=== PATIENT | female | born 1955 | race Caucasian/White ===

== ENCOUNTER → 2019-02-02 | Outpatient (CLI) | payer OTHER ==
[~2019-02-02] MED LIST: ABAT250V; ALEN70 PO; CIPR500 PO; DILT120 PO; DILT180ER PO; DILTIAZEM 24HR240 MG PO; Hydrocodone-Ap1 EA23 PO; LEVOCETIRIZINE D5 MG PO; LEVSOD75 PO; LIVALO4 MG PO; METR500 PO; MONT10T PO; Omeprazole20 M1; VALSARTAN-HCTZ1 EAC3 PO
== END ==
LOC: LAB EV 11:25 → LAB SHORT 11:25
DX: R31.21 Asymptomatic microscopic hematuria (principal)
CPT/HCPCS: 87086

== ENCOUNTER → 2022-05-16 | Outpatient (CLI) | payer OTHER ==
[~2022-05-16] MED LIST changes: +CEPH500 PO
== END | disposition home or self-care (01) ==
LOC: LAB 12:06 → LAB SHORT 12:06
DX: N39.0 Urinary tract infection, site not specified (principal)
CPT/HCPCS: 87077; 87086; 87186

== ENCOUNTER 2022-05-27 17:00 | Inpatient (IN) | payer OTHER ==
[~2022-05-27] VITALS: Ht 142.2 cm; Wt 70.3 kg
[2022-05-27 17:43] LABS: BASOPHILS ABSOLUTE AUTO 0.02 K/mm3 (0.00-0.23); BASOPHILS PERCENT AUTO 0 % (0-2); EOSINOPHILS ABSOLUTE AUTO 0.08 K/mm3 (0.00-0.68); EOSINOPHILS PERCENT AUTO 1 % (0-6); Hematocrit 28.7 % (33.0-51.0); Hemoglobin 9.3 g/dL (11.5-16.0); IMMATURE GRAN ABSOLUTE AUTO 0.25 K/mm3 (0.00-0.10); IMMATURE GRAN PERCENT AUTO 2 % (0-1); LYMPHOCYTES ABSOLUTE AUTO 1.36 K/mm3 (0.84-5.20); LYMPHOCYTES PERCENT AUTO 11 % (21-46); MONOCYTES ABSOLUTE AUTO 1.48 K/mm3 (0.16-1.47); MONOCYTES PERCENT AUTO 12 % (4-13); Mean Corpuscular HGB 24.7 pg (26.0-34.0); Mean Corpuscular HGB Conc 32.4 g/dL (31.5-36.5); Mean Corpuscular Volume 76 fL (80-100); Mean Platelet Volume 9.3 fL (9.1-12.4); NEUTROPHILS PERCENT AUTO 75 % (41-73); Platelet Count 598 K/mm3 (150-400); RDW Coefficient Variation 15.9 % (11.7-14.2); RDW Standard Deviation 43.3 fL (35.1-46.3); Red Blood Cell Count 3.76 M/mm3 (3.80-5.20); White Blood Cell Count 12.49 K/mm3 (4.00-11.30)
[2022-05-27 18:12] LABS: Albumin, Blood 1.6 g/dL (3.4-5.0); Albumin/Globulin Ratio 0.3 (0.8-1.8); Bilirubin, Total 0.2 mg/dL (0.1-1.0); Bun/Creatinine Ratio 23.8 (12.0-20.0); Calcium, Blood 8.7 mg/dL (8.5-10.1); Creatinine, Blood 0.5 mg/dL (0.40-1.00); Globulin, Blood 5.2 g/dL (2.2-4.0); Potassium, Blood 3.5 mmol/L (3.5-5.5); Total Protein, Blood 6.8 g/dL (6.4-8.2)
--- NOTE | 2022-05-28 05:00 | NUR ---
SHIFT SUMMARY PT DID NOT SLEEP HARDLY AT ALL. PT STATES THAT SHE DOES NOT LIKE TO BE ALONE. CALLS FREQUENTLY. STATES THAT SHE DOES NOT WANT TO BE IN THE HOSPITAL AND SAYS THAT SHE CANNOT STAY ANOTHER NIGHT AND SHE NEEDS TO GO HOME TODAY. PT IS CHILD LIKE. APPEARS DEVELOPMENTALLY DELAYED. WAS ABLE TO GET UP TO THE BSC WITH JUST ONE PERSON ASSIST BUT WAS VERY FEARFUL OF FALLING WHENEVER UP. URINE HAS STRONG FOUL ODOR. PT DID HAVE ONE SMALL MUCUSY BOWEL MOVEMENT. REPORTS MILD ABD PAIN TO LLQ. DENIES NEEDING ANY PAIN MEDICATION. VITAL SIGNS STABLE. BED ALARM ON THROUGHOUT THE NIGHT. WILL CONTINUE TO MONITOR.
--- NOTE | 2022-05-28 18:28 | NUR ---
PT IS A/OX3, PLEASANT AND COOPERATIVE. PT IS MILDLY DELAYED. PT SISTER IS AT THE BEDSIDE TO HELP PROVIDE CARE FOR THE PT. THE PT APPEARS TO BE BREATHING EASILY ON RA AT THIS TIME, THE PT IS UP WITH 1 PERSON ASSIST THE PT WAS UP THE THE CHAIR AND THE BSC TODAY SEVERAL TIMES. THE PT REPORTED HAVEING MILD LEFT SIDE ABD PAIN . PT DECLINED TYLENOL. CALL LIGHT IN REACH WILL CONTINUE TO MONITOR AND ASSESS FOR CHANGES
--- NOTE | 2022-05-29 04:49 | NUR ---
SHIFT SUMMARY PATIENT HAD NO ACUTE CHANGES. AXOX 3 AND MILDLY DELAYED. ONE ASSIST TO BSC. REPORTED RONA PAIN AND TYLENOL 325 MG GIVEN PER PATIENT REQUEST. TRAZADONE 25 MG GIVEN FOR INSOMNIA. DENIES CHEST PAIN, SOB, AND N/V. KOTLIK. VSS/AFEBRILE. PIV REMAINS INTACT. IV ABX INFUSED. SISTER PRESENT IN ROOM T/O SHIFT. TELE MONITOR NSR 93. CALL LIGHT IN REACH. BED IN LOWEST POSITION. WILL CONTINUE TO MONITOR UNTIL DAY SHIFT NURSE ASSUMES CARE.
[2022-05-29 14:13] LABS: BASOPHILS ABSOLUTE AUTO 0.04 K/mm3 (0.00-0.23); BASOPHILS PERCENT AUTO 0 % (0-2); EOSINOPHILS ABSOLUTE AUTO 0.01 K/mm3 (0.00-0.68); EOSINOPHILS PERCENT AUTO 0 % (0-6); Hematocrit 30.1 % (33.0-51.0); Hemoglobin 9.7 g/dL (11.5-16.0); IMMATURE GRAN ABSOLUTE AUTO 0.34 K/mm3 (0.00-0.10); IMMATURE GRAN PERCENT AUTO 2 % (0-1); LYMPHOCYTES ABSOLUTE AUTO 1.13 K/mm3 (0.84-5.20); LYMPHOCYTES PERCENT AUTO 6 % (21-46); MONOCYTES ABSOLUTE AUTO 1.42 K/mm3 (0.16-1.47); MONOCYTES PERCENT AUTO 8 % (4-13); Mean Corpuscular HGB 24.6 pg (26.0-34.0); Mean Corpuscular HGB Conc 32.2 g/dL (31.5-36.5); Mean Corpuscular Volume 76 fL (80-100); Mean Platelet Volume 9.1 fL (9.1-12.4); NEUTROPHILS ABSOLUTE AUTO 15.04 K/mm3 (1.96-9.15); NEUTROPHILS PERCENT AUTO 84 % (41-73); Platelet Count 631 K/mm3 (150-400); RDW Coefficient Variation 15.9 % (11.7-14.2); Red Blood Cell Count 3.94 M/mm3 (3.80-5.20); White Blood Cell Count 17.98 K/mm3 (4.00-11.30)
[2022-05-29 14:32] LABS: Bun/Creatinine Ratio 17.4 (12.0-20.0); Calcium, Blood 7.8 mg/dL (8.5-10.1); Creatinine, Blood 0.46 mg/dL (0.40-1.00); Potassium, Blood 3.1 mmol/L (3.5-5.5)
--- NOTE | 2022-05-29 18:36 | NUR ---
SHIFT SUMMARY A&O X 3. DEVELOPMENTALLY DELAYED. VSS. PT IS 1 TO 2 PERSON MIN ASSIST TO BSC AND CHAIR. PIV INTACT & PATENT. PLEASEANT & COOPERATIVE WITH ALL CARE. IS TOLERATING A FULL LIQ DIET WITH PLANS TO ADVANCE DIET TOMORROW IF CONTINUES TO TOLERATE. DENIES ANY PAIN OR NAUSEA THIS SHIFT. HER SISTER HAS BEEN IN & OUT VISITING TODAY.
--- NOTE | 2022-05-30 06:20 | NUR ---
EGG CANDLER SUMMARY ADMITTED FOR SEPSIS/UTI. PT IS FULL CODE. SHE IS CONTINUING TO RECEIVE IV ABX THERAPY. SHE IS A STAND-PIVOT TO THE BSC AND REFUSES TO LET HER SISTER HELP HER. PT HAS HX OF ALCOHOL SYNDROME AND IS SLIGHTLY DELAYED. ORIENTED X3. PLEASANT. SHE IS VERY FEARFUL AT TIMES. CONTINOUS SMALL PASTY BMS THROUGHOUT THE NIGHT. MEDICATED WITH TRAZODONE TO HELP PT SLEEP AND ONCE WITH TYLENOL FOR ARTHRITIS PAIN.
[2022-05-30 13:53] LABS: BASOPHILS ABSOLUTE AUTO 0.03 K/mm3 (0.00-0.23); BASOPHILS PERCENT AUTO 0 % (0-2); EOSINOPHILS ABSOLUTE AUTO 0.01 K/mm3 (0.00-0.68); EOSINOPHILS PERCENT AUTO 0 % (0-6); Hemoglobin 10.2 g/dL (11.5-16.0); IMMATURE GRAN ABSOLUTE AUTO 0.35 K/mm3 (0.00-0.10); IMMATURE GRAN PERCENT AUTO 2 % (0-1); LYMPHOCYTES ABSOLUTE AUTO 1.24 K/mm3 (0.84-5.20); LYMPHOCYTES PERCENT AUTO 8 % (21-46); MONOCYTES ABSOLUTE AUTO 1.22 K/mm3 (0.16-1.47); MONOCYTES PERCENT AUTO 7 % (4-13); Mean Corpuscular HGB 24.9 pg (26.0-34.0); Mean Corpuscular HGB Conc 32.9 g/dL (31.5-36.5); Mean Corpuscular Volume 76 fL (80-100); NEUTROPHILS ABSOLUTE AUTO 13.54 K/mm3 (1.96-9.15); NEUTROPHILS PERCENT AUTO 83 % (41-73); Platelet Count 682 K/mm3 (150-400); RDW Coefficient Variation 16.3 % (11.7-14.2); RDW Standard Deviation 43.2 fL (35.1-46.3); Red Blood Cell Count 4.09 M/mm3 (3.80-5.20); White Blood Cell Count 16.39 K/mm3 (4.00-11.30)
[2022-05-30 14:07] LABS: Bun/Creatinine Ratio 14.3 (12.0-20.0); Creatinine, Blood 0.56 mg/dL (0.40-1.00); Potassium, Blood 3.2 mmol/L (3.5-5.5)
[2022-05-30 16:17] LABS: Percent Saturation 34.7 % (15.0-50.0)
--- NOTE | 2022-05-30 18:24 | NUR ---
SHIFT SUMMARY A&O X 3. VSS. DEVELOPMENTALLY DELAYED. PLEASANT, COOPERATIVE, ASKS APPROPRIATE QUESTIONS. STAND TO PIVOT WITH STDBY ASSIST TO BSC AND CHAIR. HAD CT SCAN OF ABD/PELVIS WITH CONTRAST THIS AFTERNOON. AWAITING RESULTS. PT IS HOPING TO BE DC'D HOME. NEW 20G PIV STARTED IN L FA, ORIGINAL PIV STARTED LEAKING. DC'D WITH CATH TIP INTACT, NO REDNESS OR SWELLING NOTED AT SITE. SISTER HAS BEEN IN THE ROOM OFF AND ON THROUGHOUT SHIFT.
--- NOTE | 2022-05-31 03:58 | NUR ---
MARGIE SLEPT WELL LAST NIGHT, WAKING ONLY TO USE THE BSC WITH ASSIST OF THE [employer] SAL[employer] AND SERVICE SUPERVISOR. SISTER IS IN ROOM. SHE IS VERY PROTECTIVE OF HER. SPOKE WITH PATIENT AND SISTER ABOUT DISCOMFORT AND SHE STATED THAT THE ONLY TIME SHE IS ROUTINELY UNCOMFORTABLE, IS DURING RESTING TIMES THAT BOTH HER HIPS BEGIN TO HURT. PAIN SUBSIDES WITH APAP AND PRN POSITION CHANGES. MARGIE IS WAITING FOR RESULTS OF HER ECHO YESTERDAY TO DETERMINE WHETHER OR NOT SHE WILL BE DISCHARGED HOME TODAY
[2022-05-31 04:50] LABS: BASOPHILS ABSOLUTE AUTO 0.05 K/mm3 (0.00-0.23); BASOPHILS PERCENT AUTO 0 % (0-2); EOSINOPHILS ABSOLUTE AUTO 0.02 K/mm3 (0.00-0.68); EOSINOPHILS PERCENT AUTO 0 % (0-6); Hematocrit 35.7 % (33.0-51.0); Hemoglobin 11.2 g/dL (11.5-16.0); IMMATURE GRAN ABSOLUTE AUTO 0.51 K/mm3 (0.00-0.10); IMMATURE GRAN PERCENT AUTO 4 % (0-1); LYMPHOCYTES ABSOLUTE AUTO 1.83 K/mm3 (0.84-5.20); LYMPHOCYTES PERCENT AUTO 14 % (21-46); MONOCYTES ABSOLUTE AUTO 0.96 K/mm3 (0.16-1.47); MONOCYTES PERCENT AUTO 7 % (4-13); Mean Corpuscular HGB 24.3 pg (26.0-34.0); Mean Corpuscular HGB Conc 31.4 g/dL (31.5-36.5); Mean Corpuscular Volume 78 fL (80-100); Mean Platelet Volume 9.1 fL (9.1-12.4); NEUTROPHILS ABSOLUTE AUTO 9.75 K/mm3 (1.96-9.15); NEUTROPHILS PERCENT AUTO 74 % (41-73); Platelet Count 771 K/mm3 (150-400); RDW Standard Deviation 44.3 fL (35.1-46.3); White Blood Cell Count 13.12 K/mm3 (4.00-11.30)
[2022-05-31 05:50] LABS: Bun/Creatinine Ratio 17.5 (12.0-20.0); Calcium, Blood 8.6 mg/dL (8.5-10.1); Creatinine, Blood 0.57 mg/dL (0.40-1.00); Magnesium, Blood 2.1 mg/dL (1.6-2.4); Potassium, Blood 3.9 mmol/L (3.5-5.5)
[2022-05-31 12:50] LABS: International Normalized Ratio 1.19; Prothrombin Time Results 12.4 Sec (9.7-11.5)
--- NOTE | 2022-05-31 18:31 | NUR ---
SHIFT SUMMARY; PATIENT HAD PROCEDURE DURING CT WHERE FLUID REMOVED FROM ABCESS IN HER ABDOMEN. IT WAS SENT TO LAB FOR BACTERIAL CULTURE. SHE NOW HAS A JPEG ON HER LOWER RIGHT ABDOMEN. DRAINING LIGHT BROWN MILKY FLUID. PATIENT DENIES ANY PAIN AT THIS TIME. SHE IS ON A FULL LIQUID DIET AND USES CALL LIGHT OR SENDS HER SISTER TO THE DOOR TO ASK FOR ASSIST. SHE IS A SBA TO THE BEDSIDE COMMODE. HER NS IS AT TKO WHEN SHE HAS IV ANTIBIOTICS RUNNING AND IS SALINE LOCKED REST OF TIME. VITAL SIGNS REMAIN WNL. PATIENT IS AFEBRILE. SHE IS VERY PERSONABLE AND LIKES STAFF TO COME TO VISIT WITH HER. PER SISTER PATIENT LIVES ALONE BUT SHE LIVES WITHIN 2 MILES OF HER. WILL REMAIN AVAILABLE FOR THIS PATIENT FOR ANY WANTS OR NEEDS UNTIL HAND OFF TO NOC SHIFT RN
[2022-06-01 06:06] LABS: BASOPHILS ABSOLUTE AUTO 0.04 K/mm3 (0.00-0.23); BASOPHILS PERCENT AUTO 0 % (0-2); EOSINOPHILS ABSOLUTE AUTO 0.01 K/mm3 (0.00-0.68); EOSINOPHILS PERCENT AUTO 0 % (0-6); Hematocrit 30.6 % (33.0-51.0); Hemoglobin 9.7 g/dL (11.5-16.0); IMMATURE GRAN ABSOLUTE AUTO 0.46 K/mm3 (0.00-0.10); IMMATURE GRAN PERCENT AUTO 3 % (0-1); LYMPHOCYTES ABSOLUTE AUTO 1.71 K/mm3 (0.84-5.20); LYMPHOCYTES PERCENT AUTO 11 % (21-46); MONOCYTES ABSOLUTE AUTO 0.97 K/mm3 (0.16-1.47); MONOCYTES PERCENT AUTO 6 % (4-13); Mean Corpuscular HGB 24.6 pg (26.0-34.0); Mean Corpuscular HGB Conc 31.7 g/dL (31.5-36.5); Mean Corpuscular Volume 78 fL (80-100); Mean Platelet Volume 9.1 fL (9.1-12.4); NEUTROPHILS ABSOLUTE AUTO 12.06 K/mm3 (1.96-9.15); NEUTROPHILS PERCENT AUTO 79 % (41-73); Platelet Count 764 K/mm3 (150-400); RDW Standard Deviation 45.3 fL (35.1-46.3); Red Blood Cell Count 3.95 M/mm3 (3.80-5.20); White Blood Cell Count 15.25 K/mm3 (4.00-11.30)
[2022-06-01 06:25] LABS: Bun/Creatinine Ratio 15.9 (12.0-20.0); Calcium, Blood 8.3 mg/dL (8.5-10.1); Creatinine, Blood 0.63 mg/dL (0.40-1.00)
--- NOTE | 2022-06-01 17:45 | NUR ---
SHIFT SUMMARY; SCANT DRAINAGE FROM DRAIN IN LOWER RIGHT ABDOMEN. SHE IS MEDICATED X 1 FOR PAIN TODAY. SHE HAS MULTIPLE FRIENDS IN TO VISIT AND HAS PLEASANT AFFECT. SHE USES CALL LIGHT APPROPRIATELY. HER SISTER IS AT BEDSIDE. PATIENT VERBALIZES OFTEN SHE WANTS TO GO HOME. PATIENT IS A ONE PERSON ASSIST TO BEDSIDE COMMODE SHE IS AO X 4. VITAL SIGNS REMAIN IN NORMAL LIMITS. PATIENT IS AFEBRILE. PER SHE IS NOW ON A REGULAR DIET. WAITING FOR BACTERIAL CULTURES TO SEE IF ON CORRECT ANTIBIOTICS. WILL REMAIN AVAILABLE FOR THIS PATIENT FOR ANY WANTS OR NEEDS THAT COME UP PRIOR TO SHIFT CHANGE.
--- NOTE | 2022-06-02 17:52 | NUR ---
PATIENT HAD A GOOD SHIFT AND IS TOLERATING IV ABX. SHE COMPLAINS THAT SHE IS BORED. THE ABD DRAIN IS WORKING, BUT HAS LITTLE OUTPUT. THE SURGEON IS GOING TO STOP TODAY TO ASSESS AND MAKE SURE IT IS WORKING PROPERLY. PATIENT HAS NO PAIN. LUNGS HAD SCATTERED CRACKLES OCCASIONALY. NO SOB. SHE IS ABLE TO GET UP WITH ASSIST OF ONE TO BEDSIDE COMMODE. SHE HOPES TO HAVE AN EARLIER DISCHARGE THAN THURSDAY ORIGINALLY ANTICIPATED.
--- NOTE | 2022-06-03 05:22 | NUR ---
[facility] COORDINATOR SUMMARY ADMITTED FOR SEPSIS. PT IS A FULL CODE. DRAIN IN PLACE TO THE LLQ - SLIGHT AMOUNT OF DRIED BLOOD, OTHERWISE DRESSING IS C/D/I. TEMPLE PURULENT DRAINAGE INTO THE BAG. PT IS ALERT AND ORIENTED X2-3. 1P STAND AND PIVOT TO BSC. IV LOST TONIGHT AND THIS RN RECOMMENDED A POWERGLIDE DUE TO PT COMPLAINTS OF LAB DRAWS EVERY MORNING AND Q6 ANTIBIOTICS TO BE GIVEN. UNABLE TO OBTAIN POWERGLIDE THIS SHIFT SO WILL BE PLACED DURING DAY SHIFT - 0600 ANTIBIOTICS TO BE HELD UNTIL IV ACCESS OBTAINED. NO EVENTS ON TELE. SHE HAS HAD MULTIPLE SOFT BMS THIS SHIFT. MEDICATED X1 WITH TYLENOL FOR ARTHRITIC PAIN.
[2022-06-03 09:11] LABS: BASOPHILS ABSOLUTE AUTO 0.03 K/mm3 (0.00-0.23); BASOPHILS PERCENT AUTO 0 % (0-2); EOSINOPHILS ABSOLUTE AUTO 0.04 K/mm3 (0.00-0.68); EOSINOPHILS PERCENT AUTO 0 % (0-6); Hematocrit 28.4 % (33.0-51.0); Hemoglobin 9.2 g/dL (11.5-16.0); IMMATURE GRAN ABSOLUTE AUTO 0.61 K/mm3 (0.00-0.10); IMMATURE GRAN PERCENT AUTO 4 % (0-1); LYMPHOCYTES ABSOLUTE AUTO 1.32 K/mm3 (0.84-5.20); LYMPHOCYTES PERCENT AUTO 9 % (21-46); MONOCYTES ABSOLUTE AUTO 0.86 K/mm3 (0.16-1.47); MONOCYTES PERCENT AUTO 6 % (4-13); Mean Corpuscular HGB 24.8 pg (26.0-34.0); Mean Corpuscular HGB Conc 32.4 g/dL (31.5-36.5); Mean Corpuscular Volume 77 fL (80-100); Mean Platelet Volume 8.8 fL (9.1-12.4); NEUTROPHILS ABSOLUTE AUTO 11.24 K/mm3 (1.96-9.15); NEUTROPHILS PERCENT AUTO 80 % (41-73); Platelet Count 669 K/mm3 (150-400); RDW Coefficient Variation 16.9 % (11.7-14.2); RDW Standard Deviation 43.6 fL (35.1-46.3); Red Blood Cell Count 3.71 M/mm3 (3.80-5.20)
--- NOTE | 2022-06-03 09:49 | NUR ---
SHADE RODRIGUEZ PLACED THIS AM. 0600 ZOSYN GIVEN AT 0945. PHARMACY STATED TO HOLD THE NOON DOSE, SINCE THIS DOSE WAS SO LATE AND THEN GIVE THE 1800 DOSE AT 1700.
--- NOTE | 2022-06-03 12:35 | NUR ---
Pt. is sitting up in a chair and preparing to eat lunch. Pt. welcomes my visit. Establish rapport. Pt. verbalizes hope to be discharged home today, but is unsettled by uncertain medical prognosis. Listen empatheticly with a calming presence. Pt. verbalized a desire to have her decator operator visit, and verbalized that she would like me to reach out to him. This wedding designer texted her decator operator with the request. Pt. verbalized gratitude for the spiritual care visit.
[2022-06-03] MEDS ORDERED: ACET325 PO (14:09)
[2022-06-03] MEDS ORDERED: MELO7.5 PO (14:09)
[2022-06-03] MEDS ORDERED: CEFD300 PO (14:10)
[2022-06-03] MEDS ORDERED: VISBIOME 112.51 EACH PO (14:12)
[2022-06-03] MEDS ORDERED: METR500 PO (14:15)
[2022-06-03] MEDS ORDERED: TRAZ50 PO ×2 (14:16→14:18)
--- NOTE | 2022-06-03 17:02 | NUR ---
PATIENT WAS DISCHARGED AT 1700, TO HOME. SISTER IS TRANSPORTING. PATIENTS POWERGLIDE WAS REMOVED AND TELE DC. DRAIN IN PLACE AND EDUCATION WAS PROVIDED TO THE PATIENTS SISTER ON HOW TO EMPTY AND CARE FOR THE DRAIN. FOLLOW UP APTS, DISCHARGE INSTRUCTIONS AND PATIENT EDUCATION WAS REVIEWED WITH THE PATIENT BEFORE SHE WAS WHEELED OUT BY WC.
== END 2022-06-03 16:56 | disposition home health service (06) | DRG 872 ==
LOC: ER 17:00 → MEDS 23:15
PROVIDERS: Internal Medicine; Physician Assistant; Surgery; ADMIT Internal Medicine
DX: A41.51 Sepsis due to Escherichia coli [E. coli] (principal); K57.20 Diverticulitis of large intestine with perforation and abscess without bleeding; K21.9 Gastro-esophageal reflux disease without esophagitis; I10 Essential (primary) hypertension; E66.9 Obesity, unspecified; D50.9 Iron deficiency anemia, unspecified; Z68.34 Body mass index [BMI] 34.0-34.9, adult; E87.6 Hypokalemia; G80.9 Cerebral palsy, unspecified; N20.0 Calculus of kidney; K80.20 Calculus of gallbladder without cholecystitis without obstruction; G47.00 Insomnia, unspecified; E03.9 Hypothyroidism, unspecified; Z98.41 Cataract extraction status, right eye; Z88.2 Allergy status to sulfonamides; Z88.8 Allergy status to other drugs, medicaments and biological substances; Z98.42 Cataract extraction status, left eye; Z79.899 Other long term (current) drug therapy
CPT/HCPCS: 36415; 49405; 74176; 74177; 80048; 80053; 82607; 82728; 82746; 83540; 83550; 83605; 83735; 85025; 85610; 85730; 87040; 87070; 87075; 87077; 87186; 87205; 96365; 99285-25; A9270; J0696; J1650; J2543; J7030; J7040; Q9967

== ENCOUNTER → 2022-06-26 | Outpatient (CLI) | payer OTHER ==
[~2022-06-26] MED LIST changes: +ACET325 PO; +CEFD300 PO; +MELO7.5 PO; +TRAZ50 PO; +VISBIOME 112.51 EACH PO
[2022-06-27 15:13] LABS: Campylobacter Sp Not Detected (NOT DETECT); Plesiomonas Shigelloides Not Detected (NOT DETECT)
[2022-06-27 15:14] LABS: Adenovirus F 40/41 Not Detected (NOT DETECT); Astrovirus Not Detected (NOT DETECT); Cryptosporidium Not Detected (NOT DETECT); Cyclospora Cayetanensis Not Detected (NOT DETECT); E. Coli O157 Not Detected (NOT DETECT); Entamoeba Histolytica Not Detected (NOT DETECT); Enteroaggregative E. coli-EAEC Not Detected (NOT DETECT); Enteropathogenic E. coli-EPEC Not Detected (NOT DETECT); Enterotoxigenic E. coli-ETEC Not Detected (NOT DETECT); Giardia Lamblia Not Detected (NOT DETECT); Norovirus GI/GII Not Detected (NOT DETECT); Rotavirus A Not Detected (NOT DETECT); Salmonella Sp Not Detected (NOT DETECT); Sapovirus Not Detected (NOT DETECT); Shiga Toxin-prod E. coli-STEC Not Detected (NOT DETECT); Shigella/Enteroin E. coli-EIEC Not Detected (NOT DETECT); Vibrio Cholerae Not Detected (NOT DETECT); Vibrio Sp Not Detected (NOT DETECT); Yersinia Enterocolitica Not Detected (NOT DETECT)
== END | disposition home or self-care (01) ==
LOC: LAB 17:00 → LAB SHORT 17:00
PROVIDERS: Family Medicine
DX: R19.7 Diarrhea, unspecified (principal); R19.5 Other fecal abnormalities
CPT/HCPCS: 87507

== ENCOUNTER → 2022-06-27 | Outpatient (CLI) | payer OTHER ==
[2022-06-27 14:32] LABS: Appearance, Urine Cloudy (Clear); Bilirubin, Urine Neg (Neg); Blood, Urine 4+ (Neg); Color, Urine Amber (P-Yellow); Glucose Qualitative, Urine Neg (Neg); Ketones, Urine Neg (Neg); Leukocyte Esterase, Urine 3+ (Neg); Nitrite, Urine Neg (Neg); Protein, Urine 1+ (Neg); Specific Gravity, Urine 1.005 (1.003-1.022); Urobilinogen, Urine NORM (Normal)
[2022-06-27 15:15] LABS: Bacteria Many /hpf; Hyaline Casts 0-2 /lpf (0-2); Renal Epithelial Rare /hpf (0-Rare); Squamous Epithelial Cells Many /hpf (Few); Transitional Epithelial Cells Rare /hpf (0-Rare); WBC Cast 0-2 /lpf (0); White Blood Cells, Urine 50-100 /hpf (0-5)
== END | disposition home or self-care (01) ==
LOC: LAB HH 12:00
PROVIDERS: Family Medicine
DX: N39.0 Urinary tract infection, site not specified (principal)
CPT/HCPCS: 81001; 87077; 87086; 87186

== ENCOUNTER → 2022-07-14 | Outpatient (CLI) | payer OTHER | END | disposition home or self-care (01) | LOC: LAB SHORT 15:04 → LAB 15:04 | DX: N39.0 Urinary tract infection, site not specified (principal) | CPT/HCPCS: 87086 ==

== ENCOUNTER → 2022-08-01 | Outpatient (CLI) | payer OTHER ==
[~2022-08-01] MED LIST changes: +MELA3 PO
[2022-08-01 15:08] LABS: Source, Urine Clean Catch
[2022-08-01 15:10] LABS: Bacteria Mod /hpf; Squamous Epithelial Cells Few /hpf (Few); White Blood Cells, Urine TNTC /hpf (0-5)
== END ==
LOC: LAB SHORT 15:07
PROVIDERS: Physician Assistant
DX: N39.0 Urinary tract infection, site not specified (principal)
CPT/HCPCS: 81015; 87077; 87086; 87186

== ENCOUNTER → 2022-08-25 | Outpatient (CLI) | payer OTHER ==
[~2022-08-25] MED LIST changes: +CEFU500T30 PO
== END | disposition home or self-care (01) ==
LOC: LAB SHORT 15:39 → LAB 15:39
DX: N39.0 Urinary tract infection, site not specified (principal)
CPT/HCPCS: 87077; 87086; 87186

== ENCOUNTER 2022-08-30 13:58 | Emergency (ER) | payer OTHER ==
[~2022-08-30] VITALS: Ht 134.6 cm; Wt 68.0 kg
[~2022-08-30 13:58] MED LIST changes: -CEFU500T30 PO
[2022-08-30 16:45] LABS: BASOPHILS ABSOLUTE AUTO 0.02 K/mm3 (0.00-0.23); BASOPHILS PERCENT AUTO 0 % (0-2); EOSINOPHILS ABSOLUTE AUTO 0.12 K/mm3 (0.00-0.68); EOSINOPHILS PERCENT AUTO 1 % (0-6); Hematocrit 37.5 % (33.0-51.0); Hemoglobin 11.9 g/dL (11.5-16.0); IMMATURE GRAN ABSOLUTE AUTO 0.06 K/mm3 (0.00-0.10); IMMATURE GRAN PERCENT AUTO 1 % (0-1); LYMPHOCYTES PERCENT AUTO 12 % (21-46); MONOCYTES ABSOLUTE AUTO 0.83 K/mm3 (0.16-1.47); MONOCYTES PERCENT AUTO 8 % (4-13); Mean Corpuscular HGB 27.1 pg (26.0-34.0); Mean Corpuscular HGB Conc 31.7 g/dL (31.5-36.5); Mean Corpuscular Volume 85 fL (80-100); Mean Platelet Volume 10.3 fL (9.1-12.4); NEUTROPHILS PERCENT AUTO 78 % (41-73); Platelet Count 471 K/mm3 (150-400); RDW Standard Deviation 47.3 fL (35.1-46.3); Red Blood Cell Count 4.39 M/mm3 (3.80-5.20); White Blood Cell Count 10.63 K/mm3 (4.00-11.30)
[2022-08-30 16:50] LABS: Bun/Creatinine Ratio 22.1 (12.0-20.0); Calcium, Blood 8.9 mg/dL (8.5-10.1); Creatinine, Blood 0.45 mg/dL (0.40-1.00); Potassium, Blood 3.9 mmol/L (3.5-5.5)
[2022-08-30 17:26] LABS: Source, Urine Clean Catch
[2022-08-30 17:39] LABS: Appearance, Urine Turbid (Clear); Bilirubin, Urine Neg (Neg); Blood, Urine 5+ (Neg); Glucose Qualitative, Urine Neg (Neg); Ketones, Urine Neg (Neg); Leukocyte Esterase, Urine 3+ (Neg); Nitrite, Urine Neg (Neg); Protein, Urine 3+ (Neg); Urobilinogen, Urine NORM (Normal)
[2022-08-30 17:48] LABS: Color, Urine Pale Yellow (P-Yellow)
[2022-08-30 17:52] LABS: Bacteria Many /hpf; Red Blood Cells, Urine 25-50 /hpf (0-2); Squamous Epithelial Cells Few /hpf (Few); White Blood Cells, Urine TNTC /hpf (0-5)
[2022-08-30 17:53] LABS: Amorphous Light (0-Heavy); Calcium Oxalate Crystals Many /hpf; Mucus Light (0-Heavy); Transitional Epithelial Cells Few /hpf (0-Rare)
[2022-08-30] MEDS ORDERED: CEFU500T30 PO (18:09)
== END 2022-08-30 19:21 | disposition home or self-care (01) ==
LOC: ER 13:58
PROVIDERS: Student in an Organized Health Care Education/Training Program
DX: N39.0 Urinary tract infection, site not specified (principal); R31.9 Hematuria, unspecified; I10 Essential (primary) hypertension; E03.9 Hypothyroidism, unspecified; K92.1 Melena; Z88.2 Allergy status to sulfonamides; Z88.8 Allergy status to other drugs, medicaments and biological substances; Z79.890 Hormone replacement therapy; Z79.899 Other long term (current) drug therapy
CPT/HCPCS: 36415; 80048; 81001; 85025; 87077; 87086; 87186; A9270

== ENCOUNTER 2022-09-24 12:36 | Emergency (ER) | payer OTHER ==
[~2022-09-24] VITALS: Ht 134.6 cm; Wt 54.4 kg
[~2022-09-24 12:36] MED LIST changes: +CEFU500T30 PO
[2022-09-24 13:54] LABS: Adenovirus Not Detected (NOT DETECT); Bordetella pertussis Not Detected (NOT DETECT); Chlamydophila pneumoniae Not Detected (NOT DETECT); Coronavirus 229E Not Detected (NOT DETECT); Coronavirus HKU1 Not Detected (NOT DETECT); Coronavirus NL63 Not Detected (NOT DETECT); Coronavirus OC43 Not Detected (NOT DETECT); Human Metapneumovirus Not Detected (NOT DETECT); Human Rhinovirus/Enterovirus Not Detected (NOT DETECT); Influenza A/2009-H1 Not Detected (NOT DETECT); Influenza A/H1 Not Detected (NOT DETECT); Influenza A/H3 Not Detected (NOT DETECT); Influenza B Not Detected (NOT DETECT); Mycoplasma pneumoniae Not Detected (NOT DETECT); Parainfluenza Virus 1 Not Detected (NOT DETECT); Parainfluenza Virus 2 Not Detected (NOT DETECT); Parainfluenza Virus 3 Not Detected (NOT DETECT); Parainfluenza Virus 4 Not Detected (NOT DETECT); Respiratory Syncytial Virus Not Detected (NOT DETECT); SARS-Cov-2 (COVID-19), BioFire Not Detected (NOT DETECT)
[2022-09-24 14:42] LABS: Source, Urine Clean Catch
[2022-09-24 14:45] LABS: Appearance, Urine Turbid (Clear); Blood, Urine 5+ (Neg); Color, Urine Amber (P-Yellow); Glucose Qualitative, Urine Neg (Neg); Ketones, Urine 1+ (Neg); Leukocyte Esterase, Urine 3+ (Neg); Nitrite, Urine Pos (Neg); Protein, Urine 3+ (Neg); Specific Gravity, Urine 1.025 (1.003-1.022); Urobilinogen, Urine 1+ (Normal)
[2022-09-24 14:53] LABS: Bilirubin, Urine 1+ (Neg)
[2022-09-24 14:55] LABS: Bacteria Many /hpf; Hyaline Casts 0-2 /lpf (0-2); Red Blood Cells, Urine TNTC /hpf (0-2); Squamous Epithelial Cells Few /hpf (Few); Transitional Epithelial Cells Rare /hpf (0-Rare); White Blood Cells, Urine TNTC /hpf (0-5)
[2022-09-24] MEDS ORDERED: CEFP200 PO (15:10)
== END 2022-09-24 15:40 | disposition home or self-care (01) ==
LOC: ER 12:36
PROVIDERS: Emergency Medicine; Physician Assistant
DX: N39.0 Urinary tract infection, site not specified (principal); R11.2 Nausea with vomiting, unspecified; R19.7 Diarrhea, unspecified; I10 Essential (primary) hypertension; E03.9 Hypothyroidism, unspecified; Z88.8 Allergy status to other drugs, medicaments and biological substances; Z88.2 Allergy status to sulfonamides; Z88.1 Allergy status to other antibiotic agents; Z91.018 Allergy to other foods; Z79.899 Other long term (current) drug therapy; Z20.822 Contact with and (suspected) exposure to COVID-19
CPT/HCPCS: 0202U; 81001

== ENCOUNTER 2022-10-09 06:04 | Inpatient (IN) | payer OTHER ==
[~2022-10-09] VITALS: Ht 142.2 cm; Wt 54.9 kg
[~2022-10-09 06:04] MED LIST changes: +CEFP200 PO
[2022-10-09] MEDS ORDERED: METR500 (06:41)
[2022-10-09] MEDS ORDERED: GABAPENTIN600 MG PO (06:42)
[2022-10-09] MEDS ORDERED: TRAZ50 PO (06:43)
[2022-10-09] MEDS ORDERED: LEVOCETIRIZINE D5 MG PO (06:44)
--- NOTE | 2022-10-09 08:22 | NUR ---
LATE NOTE: Ambulatory in Day Surgery. Surgical site prepped with 2% Chlorhexidine cloth wipe. History, Chart, Medications and Allergies reviewed before start of procedure. Patient reports completing Chlorhexadine shower X2 prior to admission to hospital.Patient confirms NPO status and agrees with scheduled surgery.Pt was insecure about surgery, consoled and explained the need. Sister and Caregiver at bedside. Dr. Iglesias at bedside and opened fluids to gravity due to pt being nauseated.
--- NOTE | 2022-10-09 14:30 | NUR ---
10/09/22 1430 Gloria Martinez XRAY TAKEN AT END OF CASE. PER NO RETAINED ITEMS.
[2022-10-09] MEDS ORDERED: PRAVASTATIN SOD40 MG PO (15:13)
--- NOTE | 2022-10-09 19:41 | NUR ---
SHIFT SUMMARY POD0 SIGMOID COLECTOMY c VERONICA, PT CONFUSED POST OP AND SISTER AT BEDSIDE REPORTING THIS NOT TO BE HER BASELINE, DISCUSSED SITUATION WITH PT AND SISTER THAT THIS IS MOST LIKELY R/T ANESTHESIA. FAMILY STAYED AT BEDSIDE T/O THE SHIFT ASSISTING WITH PATIENT NEEDS. NO OTHER EVENTS THIS SHIFT, CALL LIGHT IN REACH, REPORT GIVEN TO NOC RN.
--- NOTE | 2022-10-10 06:36 | NUR ---
SHIFT SUMMARY: PODx1 NOW FROM SIG. COLECTOMY WITH LYSIS OF ADHESIONS. PAIN WELL MANAGED T/O THE SHIFT WITH EMAR ORDERS. PT RESTED THE MAJORITY OF THE NIGHT. DWAIN REMAINS IN PLACE WITH X4 LAP SITES COVERED WITH BANDAIDS. PT TOLERATING PO FLUIDS WELL AT THIS TIME. JOSEPH REMAINS IN PLACE. PATENT AND DRAINING TO GRAVITY. PT ENCOURAGED TO REST. CALL LIGHT REMAINS IN PLACE.
[2022-10-10 08:02] LABS: BASOPHILS ABSOLUTE AUTO 0.01 K/mm3 (0.00-0.23); BASOPHILS PERCENT AUTO 0 % (0-2); EOSINOPHILS PERCENT AUTO 0 % (0-6); Hematocrit 23.9 % (33.0-51.0); Hemoglobin 7.8 g/dL (11.5-16.0); IMMATURE GRAN ABSOLUTE AUTO 0.08 K/mm3 (0.00-0.10); IMMATURE GRAN PERCENT AUTO 1 % (0-1); LYMPHOCYTES ABSOLUTE AUTO 1.57 K/mm3 (0.84-5.20); LYMPHOCYTES PERCENT AUTO 10 % (21-46); MONOCYTES ABSOLUTE AUTO 1.98 K/mm3 (0.16-1.47); MONOCYTES PERCENT AUTO 12 % (4-13); Mean Corpuscular HGB 26.3 pg (26.0-34.0); Mean Corpuscular HGB Conc 32.6 g/dL (31.5-36.5); Mean Corpuscular Volume 81 fL (80-100); Mean Platelet Volume 10.3 fL (9.1-12.4); NEUTROPHILS PERCENT AUTO 78 % (41-73); NRBC ABSOLUTE 0.02 K/mm3 (0.00-0.02); NRBC Auto 0.1 /100 WBC (0.0-0.2); Platelet Count 424 K/mm3 (150-400); RDW Coefficient Variation 16.8 % (11.7-14.2); RDW Standard Deviation 46.5 fL (35.1-46.3); Red Blood Cell Count 2.97 M/mm3 (3.80-5.20); White Blood Cell Count 16.34 K/mm3 (4.00-11.30)
[2022-10-10 08:28] LABS: Bun/Creatinine Ratio 20.4 (12.0-20.0); Calcium, Blood 7.7 mg/dL (8.5-10.1); Creatinine, Blood 1.13 mg/dL (0.40-1.00); Magnesium, Blood 1.8 mg/dL (1.6-2.4); Potassium, Blood 3.9 mmol/L (3.5-5.5)
--- NOTE | 2022-10-10 17:27 | NUR ---
SUMMARY: PT IS POD1 SIG COLECTOMY. A/O, VSS. SURGICAL SITE WNL, DWAIN DI. DIET ADVANCED TO REG TODAY AND PT DID WELL. NO N/V. PAIN SEEMS TO BE WELL MANAGED WITH 1-2 OXY. JOSEPH TO REMAIN IN UNTIL SURGERY ORDERS TO DC. PT DID WELL GETTING UP TO CHAIR WITH THERAPY. FLUIDS INFUSING. PT USING CALL LIGHT, NO ACUTE CONCERNS
--- NOTE | 2022-10-11 02:07 | NUR ---
IV ATTEMPT: ATTEMPTED TO PLACE IV WITH CHARGE NURSE. UNSUCCESSFUL, EVEN AFTER USING ULTRASOUND. PT LEFT IV WAS INFILTRATED. REMOVED AND LIMB ELEVATED. ENCOURAGED PT TO DRINK FLUIDS AT THIS TIME. WILL RELAY TO DAY SHIFT RN.
--- NOTE | 2022-10-11 04:30 | NUR ---
0430 PT C/O PAIN WITH COUGHING. PT ENCOURAGED TO DEEP BREATHE, USE IS, AND SPLINT CHEST WHEN COUGHING. PT WAS MEDICATED FOR PAIN PER EMAR ORDERS. TYLENOL AND OXYCODONE GIVEN. DWAIN IN PLACE WITH NO NEW EXUDATE NOTED. PT IS WEAK AND TIRED. LUNG SOUNDS STILL SOUNDING CLEAR IN UPPER QUADRANTS.
[2022-10-11 05:09] LABS: BASOPHILS ABSOLUTE AUTO 0.02 K/mm3 (0.00-0.23); BASOPHILS PERCENT AUTO 0 % (0-2); EOSINOPHILS PERCENT AUTO 0 % (0-6); Hematocrit 20.4 % (33.0-51.0); Hemoglobin 6.8 g/dL (11.5-16.0); IMMATURE GRAN ABSOLUTE AUTO 0.18 K/mm3 (0.00-0.10); IMMATURE GRAN PERCENT AUTO 1 % (0-1); LYMPHOCYTES ABSOLUTE AUTO 1.26 K/mm3 (0.84-5.20); LYMPHOCYTES PERCENT AUTO 6 % (21-46); MONOCYTES ABSOLUTE AUTO 2.47 K/mm3 (0.16-1.47); MONOCYTES PERCENT AUTO 12 % (4-13); Mean Corpuscular HGB 26.5 pg (26.0-34.0); Mean Corpuscular HGB Conc 33.3 g/dL (31.5-36.5); Mean Corpuscular Volume 79 fL (80-100); Mean Platelet Volume 10.1 fL (9.1-12.4); NEUTROPHILS ABSOLUTE AUTO 16.15 K/mm3 (1.96-9.15); NEUTROPHILS PERCENT AUTO 80 % (41-73); NRBC ABSOLUTE 0.02 K/mm3 (0.00-0.02); NRBC Auto 0.1 /100 WBC (0.0-0.2); Platelet Count 400 K/mm3 (150-400); RDW Coefficient Variation 17.2 % (11.7-14.2); RDW Standard Deviation 47.6 fL (35.1-46.3); Red Blood Cell Count 2.57 M/mm3 (3.80-5.20); White Blood Cell Count 20.08 K/mm3 (4.00-11.30)
[2022-10-11 05:27] LABS: Albumin, Blood 1.9 g/dL (3.4-5.0); Anion Gap 9 mmol/L (6-16); Blood Urea Nitrogen 43 mg/dL (8-24); Bun/Creatinine Ratio 32.3 (12.0-20.0); CO2, Blood 24 mmol/L (21-32); Calcium, Blood 7.7 mg/dL (8.5-10.1); Chloride, Blood 105 mmol/L (98-108); Creatinine, Blood 1.33 mg/dL (0.40-1.00); Glomerular Filtration Rate 44 (60-); Glucose, Blood 144 mg/dL (70-99); Phosphorus, Blood 2.1 mg/dL (2.5-4.9); Potassium, Blood 3.6 mmol/L (3.5-5.5); Sodium, Blood 138 mmol/L (136-145)
--- NOTE | 2022-10-11 07:10 | NUR ---
PHYSICIAN CONTACT: 0520: CALLED DR BERGER REGARDING PT HEMOGLOBIN OF 6.8 AND WBC OF 20.98. PROVIDER ORDERED A POWERGLIDE BE PLACED, A TYPE AND CROSS FOR 1 UNIT OF RBC TO BE ADMINISTERED, AND TO HOLD THE LOVENOX. 0638: CALLED DR BERGER A SECOND TIME. PT HAD EMESIS THAT WAS BROWN IN COLOR. DISCUSSED HAVING TO HOLD PO MEDICATION DUE TO EMESIS. PROVIDER STATES THAT SHE WOULD ORDER IV ABX FOR THE PT. DR. BERGER ASKED THAT SHE BE PUT BACK ONTO A CLEAR LIQUID DIET FOR THE TIME BEING AND CONNECT TO FLUIDS. PT CONNECTED TO THE LR FLUIDS AT THIS TIME. DISCUSSED HARD LUMP AT THE TOP OF THE PT DWAIN DRESSING. PROVIDER STATES THE PT HAS A HX OF AN UMBILICAL HERNIA AND IT IS LIKELY THAT IT HAS HARDENED. DWAIN DRESSING DOES NOT SHOW ANY NEW SIGNS OF BLEEDING AT THIS TIME.
--- NOTE | 2022-10-11 07:41 | NUR ---
SHIFT SUMMARY: PODx2 SIG. COLECTOMY WITH LYSIS OF ADHESIONS. MIDLINE DWAIN IN PLACE, NO NEW DRAINAGE NOTED, DRIED BLOOD NOTED. NO NEW CHANGES TO THE DRESSING. THE PT HAS A HARDENED LUMP ABOVE THE DWAIN, PROVIDER AWARE. THE PT HEART RATE REMAINED TACHY T/O THE SHIFT, PT HAD A NEW EPISODE OF EMESIS THAT WAS BROWN IN COLOR, AND PT REMAINED TIRED AND WEAK. IV ACCESS WAS LOST IN THE LEFT ARM DUE TO INFILTRATION. THE PT HAD A POWERGLIDE PLACED BY SHELLI EVANS RN IN THE LEFT UPPER ARM. IS PLACED IN ROOM AND THE PT WAS ENCOURAGED TO SPLINT THE CHEST. PROVIDER ORDERED IV ABX, A CLEAR LIQUID DIET, AND TO HOLD THE LOVENOX. TYPE AND CROSS SENT TO LAB. REPORT GIVEN TO DAY TIME RN.
--- NOTE | 2022-10-11 07:47 | NUR ---
TACHYCARDIA AND LOW O2 SAT UPON AM VS CHECK, PT'S HR WAS 120s AND O2 SATURATION FOUND IN MID 80'S BUT DIPPPED LOW 81% BEFORE O2 COULD BE PLACED. 4L O2 PLACED VIA NC, PT IMMEDIATELY RESPONDED AND O2 SAT INCREASED TO 97%, PT TITRATED DOWN AND LEFT ON 2L O2 VIA NC. PT DENIES SHORTNESS OF BREATH AND CHEST PAIN. PT WAS SLEEPING AT TIME O2 SATURATION CHECK, SHE WAS ABLE TO WAKE UP AND RESPOND APPROPRIATELY. DR. BERGER NOTIFIED OF ELEVATED HR, SHE DECLINED THE NEED FOR TELE AT THIS TIME. PLAN TO ADMINISTER 1 UNIT PRBC ORDERED WHEN IT IS AVALIABLE FROM LAB.
--- NOTE | 2022-10-11 18:42 | NUR ---
SHIFT SUMMARY PT IS POD#2 FROM AN OPEN SIGMOID COLECTOMY WITH DR. BERGER. PT HAD 1 UNIT OF PRBCs TODAY, SHE ALSO REQUIRED ALBUMIN, PT TOLERATED WELL. PT HAS BEEN PAINFUL WHEN AWAKE BUT FALLS ASLEEP QUICKLY WITHOUT ANY MOANING, WINCING OR GRIMACING IN HER SLEEP. PT HAS BEEN SOMNOLENT T/O THE DAY. TYLENOL HAS BEEN GIVEN FOR PAIN. PT IS A 2 PERSON ASSIST TO REPOSITION, SHE IS RESISTANT TO REPOSITIONING R/T PAIN. PT IS TOLERATING SMALL AMOUNTS OF CLEAR LIQUIDS. REPORT GIVEN TO MINDY ASTUDILLO.
--- NOTE | 2022-10-12 05:04 | NUR ---
SHIFT SUMMARY NO ACUTE CHANGES THIS SHIFT. PT RESTED WELL INTERMITTENTLY. PT WAKES UP ANXIOUS AT TIMES AND COMPLAINS OF PAIN ON HER BUTTOCKS. REPOSITIONING PRN WITH PILLOWS. PT ALSO WITH INTERMITTENT NAUSEA. ZOFRAN X1 GIVEN AND SEEMS TO HAVE BEEN EFFECTIVE. PT PASSING FLATUS. JOSEPH DRAINING CLEAR YELLOW URINE. IVF + ABX PER ORDERS. 1 ROXICODONE FOR PAIN PRN. LAP SITES + DWAIN REMAIN UNCHANGED. PT FRIEND AT BEDSIDE FOR SUPPORT. CALL LIGHT WITHIN REACH.
[2022-10-12 05:49] LABS: BASOPHILS ABSOLUTE AUTO 0.02 K/mm3 (0.00-0.23); BASOPHILS PERCENT AUTO 0 % (0-2); EOSINOPHILS ABSOLUTE AUTO 0.01 K/mm3 (0.00-0.68); EOSINOPHILS PERCENT AUTO 0 % (0-6); Hematocrit 23.1 % (33.0-51.0); Hemoglobin 7.8 g/dL (11.5-16.0); IMMATURE GRAN ABSOLUTE AUTO 0.15 K/mm3 (0.00-0.10); IMMATURE GRAN PERCENT AUTO 1 % (0-1); LYMPHOCYTES ABSOLUTE AUTO 0.93 K/mm3 (0.84-5.20); LYMPHOCYTES PERCENT AUTO 5 % (21-46); MONOCYTES ABSOLUTE AUTO 1.76 K/mm3 (0.16-1.47); MONOCYTES PERCENT AUTO 10 % (4-13); Mean Corpuscular HGB 26.9 pg (26.0-34.0); Mean Corpuscular HGB Conc 33.8 g/dL (31.5-36.5); Mean Corpuscular Volume 80 fL (80-100); Mean Platelet Volume 10.1 fL (9.1-12.4); NEUTROPHILS ABSOLUTE AUTO 15.47 K/mm3 (1.96-9.15); NEUTROPHILS PERCENT AUTO 84 % (41-73); NRBC ABSOLUTE 0.03 K/mm3 (0.00-0.02); NRBC Auto 0.2 /100 WBC (0.0-0.2); Platelet Count 321 K/mm3 (150-400); RDW Coefficient Variation 16.7 % (11.7-14.2); RDW Standard Deviation 47.6 fL (35.1-46.3); White Blood Cell Count 18.34 K/mm3 (4.00-11.30)
[2022-10-12 06:07] LABS: Bun/Creatinine Ratio 39.1 (12.0-20.0); Calcium, Blood 8.2 mg/dL (8.5-10.1); Creatinine, Blood 0.84 mg/dL (0.40-1.00); Potassium, Blood 3.6 mmol/L (3.5-5.5)
--- NOTE | 2022-10-12 18:12 | NUR ---
SHIFT SUMMARY PT A/O X2-3 BUT VERY ANXIOUS. PT NEEDS A LOT OF REASURRANCE AND HAS CAREGIVER/SISTER AT THE BEDSIDE. PT C/O NAUSEA AND SPITTING UP BROWN PHLEGM. C/O PAIN IN HER ABD AND TREATED PER EMR. PT UP TO THE BSC AND CHAIR WITH A 2-3 PERSON MAX ASSIST. JOSEPH CATHETER DC'D THIS SHIFT.
--- NOTE | 2022-10-12 21:55 | NUR ---
PT FAMILY HAD CONCERNS OF INCREASED COUGHING. REASSESSED PT'S LUNGS. INCREASED COARSE/CRACKLES IN THE UPPER LOBES. CONTACTED RT TO FURTHER ASSESS. RT RECOMMENDED CHEST XR FOR POSSIBLE ASPIRATION. CONTACTED AND UPDATED. NEW ORDERS FOR CHEST XR, AND ONE TIME ALBUTEROL TREATMENT.
--- NOTE | 2022-10-13 00:22 | NUR ---
URINE WAS COLLECTED BY VOID, NOT JOSEPH JOSEPH WAS ALREADY DC'ED AT TIME OF COLLECTION
[2022-10-13 00:28] LABS: Source, Urine Foley catheter
[2022-10-13 00:30] LABS: Bilirubin, Urine Neg (Neg); Blood, Urine 3+ (Neg); Glucose Qualitative, Urine Neg (Neg); Ketones, Urine 2+ (Neg); Leukocyte Esterase, Urine 3+ (Neg); Nitrite, Urine Pos (Neg); Protein, Urine 2+ (Neg); Specific Gravity, Urine 1.015 (1.003-1.022); Urobilinogen, Urine NORM (Normal)
[2022-10-13 01:21] LABS: Appearance, Urine Hazy (Clear); Color, Urine Yellow (P-Yellow)
[2022-10-13 01:42] LABS: Bacteria Mod /hpf; Squamous Epithelial Cells Mod /hpf (Few); Transitional Epithelial Cells Few /hpf (0-Rare)
[2022-10-13 05:46] LABS: BASOPHILS ABSOLUTE AUTO 0.03 K/mm3 (0.00-0.23); BASOPHILS PERCENT AUTO 0 % (0-2); EOSINOPHILS ABSOLUTE AUTO 0.06 K/mm3 (0.00-0.68); EOSINOPHILS PERCENT AUTO 0 % (0-6); Hematocrit 23.9 % (33.0-51.0); Hemoglobin 7.9 g/dL (11.5-16.0); IMMATURE GRAN ABSOLUTE AUTO 0.27 K/mm3 (0.00-0.10); IMMATURE GRAN PERCENT AUTO 1 % (0-1); LYMPHOCYTES ABSOLUTE AUTO 1.43 K/mm3 (0.84-5.20); LYMPHOCYTES PERCENT AUTO 8 % (21-46); MONOCYTES PERCENT AUTO 13 % (4-13); Mean Corpuscular HGB 27.2 pg (26.0-34.0); Mean Corpuscular HGB Conc 33.1 g/dL (31.5-36.5); Mean Corpuscular Volume 82 fL (80-100); Mean Platelet Volume 10.1 fL (9.1-12.4); NEUTROPHILS PERCENT AUTO 78 % (41-73); NRBC ABSOLUTE 0.03 K/mm3 (0.00-0.02); NRBC Auto 0.2 /100 WBC (0.0-0.2); Platelet Count 358 K/mm3 (150-400); RDW Coefficient Variation 17.2 % (11.7-14.2); RDW Standard Deviation 50.4 fL (35.1-46.3); White Blood Cell Count 19.19 K/mm3 (4.00-11.30)
--- NOTE | 2022-10-13 05:53 | NUR ---
SHIFT SUMMARY PT A&OX 2-3, AND COOPERATIVE, BUT CAN BE ANXIOUS. CAREGIVER/FAMILY HAVE BEEN AT BEDSIDE TO HELP WITH THIS. PT WAS MEDICATED ONCE FOR PAIN THIS SHIFT. PER DAY SHIFT PT IS A 2-3 MAX ASSIST TO BSC/CHAIR. PT POSSIBLY ASPIRATED, NOTIFIED. ONE TIME DOES OF LASIX/METOPROLOL GIVEN PER ORDERS. CALL LIGHT WITHIN REACH.
[2022-10-13 06:06] LABS: Albumin, Blood 1.8 g/dL (3.4-5.0); Anion Gap 7 mmol/L (6-16); Blood Urea Nitrogen 35 mg/dL (8-24); Bun/Creatinine Ratio 39.4 (12.0-20.0); CO2, Blood 26 mmol/L (21-32); Calcium, Blood 8.4 mg/dL (8.5-10.1); Chloride, Blood 106 mmol/L (98-108); Creatinine, Blood 0.89 mg/dL (0.40-1.00); Glomerular Filtration Rate 71 (60-); Glucose, Blood 112 mg/dL (70-99); Magnesium, Blood 2.1 mg/dL (1.6-2.4); Phosphorus, Blood 2.6 mg/dL (2.5-4.9); Potassium, Blood 3.8 mmol/L (3.5-5.5); Sodium, Blood 139 mmol/L (136-145)
--- NOTE | 2022-10-13 16:32 | NUR ---
SHIFT SUMMARY PT POD #4 FOR SIGMOID COLECTOMY WITHOUT A COLOSTOMY. MIDLINE DWAIN HAS BROWN SHADOWING BUT STILL COMPRESSED. LAP SITES WITH BANDAIDES CDI. PT ABLE TO GET UP TO THE CHAIR TODAY WITH A 2 ASSIST. PT ALSO ABLE TO WALK TO THE BATHROOM WITH 2 ASSIST W/FWW/GB. PT PASSED A LOT OF FLATUS THIS SHIFT AND CONTINUES TO BELCH. HR REMAINS ELEVATED. IV ABX CHANGED.
--- NOTE | 2022-10-14 07:20 | NUR ---
POD 5 S/P COLECTOMY. PT VSS TO NIGHT. SATS >94% ON 2LO2 NC. LUNGS DIM, TDCB EXERCISES ENC. DWAIN DRESSING INPLACE W/MOD AMT SS DRNG. PT CHET PO, DENIED N/V, REP +FLATUS, HAD 1 SMALL BM. PT ASSISTED W/BEDPAN. PAIN MGD W/1 NORCO W/REP RELIEF. REPOSITIONING ENC PT CHET. PT ANXIOUS AT TIMES, SUPPORT AND EDUCATION PRN. FAMILY MEMBER PRESENT IN ROOM T/O NIGHT.
--- NOTE | 2022-10-14 19:03 | NUR ---
SHIFT SUMMARY POD5 LAP TO OPEN SIG COLECTOMY, A/O, VSS, TOLERATING PO, DID WELL WITH PHYSICAL THERAPY TODAY, UP TO CHAIR T/O MOST OF THE SHIFT, PLEASANT AND COOPERATIVE. NO ACUTE EVENTS THIS SHIFT, CALL LGT IN REACH, REPORT GIVEN TO MINDY RN.
--- NOTE | 2022-10-14 23:03 | NUR ---
ASSUMED CARE OF PATIENT, RECIEVED REPORT FROM DIEGO ASTUDILLO
--- NOTE | 2022-10-15 04:37 | NUR ---
POD6 COLECTOMY. MIDLINE DWAIN IS SATURATION WITH AN AIR LEAK ALARM, PLAN FOR THIS DRESSING TO BE CHANGED TODAY. LAP SITES COVERED WITH BANDAGES, NO DRAINAGE NOTED. VSS, PT NOTED TO BE TACHYCARDIC. TELE READS SINUS TACHY 108. PT REMAINS ASYMPTOMATIC. PT SLEPT WELL T/O THE NIGHT. TOLLERATING PO INTAKE W/O N/V. MEDICATED FOR PAIN WITH TYLENOL. PLAN FOR PT TO D/C HOME TODAY. THE PATIENT IS CURRENTLY RESTING IN BED, SISTER AT BEDSIDE, CALL LIGHT IN REACH.
[2022-10-15 06:00] LABS: BASOPHILS ABSOLUTE AUTO 0.04 K/mm3 (0.00-0.23); BASOPHILS PERCENT AUTO 0 % (0-2); EOSINOPHILS ABSOLUTE AUTO 0.58 K/mm3 (0.00-0.68); EOSINOPHILS PERCENT AUTO 4 % (0-6); Hematocrit 23.4 % (33.0-51.0); Hemoglobin 7.4 g/dL (11.5-16.0); IMMATURE GRAN ABSOLUTE AUTO 0.79 K/mm3 (0.00-0.10); IMMATURE GRAN PERCENT AUTO 5 % (0-1); LYMPHOCYTES ABSOLUTE AUTO 1.44 K/mm3 (0.84-5.20); LYMPHOCYTES PERCENT AUTO 9 % (21-46); MONOCYTES ABSOLUTE AUTO 1.72 K/mm3 (0.16-1.47); MONOCYTES PERCENT AUTO 11 % (4-13); Mean Corpuscular HGB 26.4 pg (26.0-34.0); Mean Corpuscular HGB Conc 31.6 g/dL (31.5-36.5); Mean Corpuscular Volume 84 fL (80-100); Mean Platelet Volume 10.3 fL (9.1-12.4); NEUTROPHILS PERCENT AUTO 72 % (41-73); NRBC ABSOLUTE 0.07 K/mm3 (0.00-0.02); NRBC Auto 0.4 /100 WBC (0.0-0.2); Platelet Count 580 K/mm3 (150-400); RDW Coefficient Variation 17.2 % (11.7-14.2); RDW Standard Deviation 52.2 fL (35.1-46.3); White Blood Cell Count 16.27 K/mm3 (4.00-11.30)
--- NOTE | 2022-10-15 18:30 | NUR ---
SHIFT SUMMARY PATIENT LETHARGIC AND FREQUENT NAPS THROUGHOUT SHIFT. ORIENTED AT TIMES, OTHER TIMES CHILDLIKE THOUGHT PROCESS. SBA WITH WALKER TO RECLINER. USES BEDPAN FOR BM, OCCASIONALLY INCONTINENT OF URINE IN ATTENDS. TOLERATING SOME PUREE INTAKE AND THIN LIQUIDS. ASPIRATION RISK WITH LOW GRADE PNEUMONIA THAT IS RESOLVING PER DR BERGER. OCC PRODUCTIVE COUGH. SATTING ABOVE 90% ON ROOM AIR. MEDICATED FOR PAIN WITH ORAL NORCO, TRAMADOL, AND TYLENOL. LIDOCAINE PATCHES ORDERED AND PLACED AT END OF SHIFT. AVOIDED IV DILAUDID DUE TO LETHARGY. MIDLINE ABD INCISION WNL, DWAIN REMOVED AND MEDIPORE PLACED. LAP SITES GUARD SUPERVISOR C/D/I. TELE DC'D. LOW PAIN TOLERANCE AND FEARFUL. FAMILY OR CAREGIVER PRESENT AT BEDSIDE FOR MOST OF SHIFT. PLAN TO DISCHARGE HOME TOMORROW 10/16/22 OR Thursday10/17/22.
--- NOTE | 2022-10-16 05:44 | NUR ---
SHIFT SUMMARY: PODx7 NOW FROM SIG. COLECTOMY. HEART RATE WAS SLIGHTLY TACHYCARDIC T/O THE SHIFT AT 101. MEDIPORE DRESSING REMAINS C/D/I. PT WAS ENCOURAGED TO DEEP BREATHE AND SPLINT CHEST WITH COUGHING. AMBULATED PT TO BATHROOM AND TO CHAIR. PT HESITANT TO MOVE AND GET OUT OF BED. ANXIOUS/IRRITABLE AT TIMES WITH CARE. PAIN MANAGED PER EMAR ORDERS AND UNINTERRUPTED REST. PLANS TO WORK WITH THERAPY TODAY AND POSSIBLY DC HOME.
[2022-10-16 10:22] LABS: Hematocrit 25.9 % (33.0-51.0); Mean Corpuscular HGB Conc 30.9 g/dL (31.5-36.5); Mean Corpuscular Volume 84 fL (80-100); Mean Platelet Volume 10.1 fL (9.1-12.4); NRBC ABSOLUTE 0.07 K/mm3 (0.00-0.02); NRBC Auto 0.4 /100 WBC (0.0-0.2); Platelet Count 785 K/mm3 (150-400); RDW Coefficient Variation 17.5 % (11.7-14.2); RDW Standard Deviation 53.2 fL (35.1-46.3); Red Blood Cell Count 3.08 M/mm3 (3.80-5.20); White Blood Cell Count 18.98 K/mm3 (4.00-11.30)
[2022-10-16 10:45] LABS: Creatinine, Blood 0.69 mg/dL (0.40-1.00); Potassium, Blood 3.6 mmol/L (3.5-5.5)
[2022-10-16 11:00] LABS: BAND PERCENT MAN 1 % (0-8); BASOPHILS PERCENT MAN 0 % (0-2); EOSINOPHILS ABSOLUTE MAN 0.18 K/mm3 (0.00-0.68); EOSINOPHILS PERCENT MAN 1 % (0-6); LYMPHOCYTES ABSOLUTE MAN 2.46 K/mm3 (0.84-5.20); LYMPHOCYTES PERCENT MAN 13 % (21-46); MONOCYTES ABSOLUTE MAN 0.37 K/mm3 (0.16-1.47); MONOCYTES PERCENT MAN 2 % (4-13); NEUTROPHILS ABSOLUTE MAN 15.94 K/mm3 (1.96-9.15); SEG NEUTROPHILS PERCENT MAN 83 % (41-73); TOTAL CELLS COUNTED 100
[2022-10-16] MEDS ORDERED: Q-Tussin100 MG/5 M PO (13:12)
[2022-10-16] MEDS ORDERED: LEVFLO500 PO (13:13)
[2022-10-16] MEDS ORDERED: HYDR1TAB94 PO (13:13)
--- NOTE | 2022-10-16 13:30 | NUR ---
DISCHARGE SUMMARY PT A&OX3, VSS/RA, CHET PO, VOIDING, FLATUS/BMS, AMB SBA/MOD ASSIST WITH FWW-BASELINE, PAIN MANAGED, SHOWERED TODAY, PWRGLIDE DC'D. DC INS PROVIDED. PT AND SISTER REP UNDERSTANDING DC INS INCLUDING MEDIPORE DRESSING CHANGES PRN, FU WITH SURGEON FOR STAPLE REMOVAL. LEFT FLOOR VIA WC WITH DIVING INSTRUCTOR TO GO HOME WITH SISTER AND CAREGIVER WITH ALL PERSONAL POSSESSIONS INCLUDING DC PACKET AND EXTRA DRESSINGS, SCRIPTS AT PHARMACY.
== END 2022-10-16 13:50 | disposition home or self-care (01) | DRG 329 ==
LOC: SURS 06:04 → PRE IP 07:30 → SURS 15:27
PROVIDERS: ADMIT Surgery
PROC: 0DTN0ZZ Resection of Sigmoid Colon, Open Approach (ICD-10-PCS; principal; 2022-10-16)
PROC: 0DJD4ZZ Inspection of Lower Intestinal Tract, Percutaneous Endoscopic Approach (ICD-10-PCS; 2022-10-16)
DX: K57.20 Diverticulitis of large intestine with perforation and abscess without bleeding (principal); J18.9 Pneumonia, unspecified organism; N32.1 Vesicointestinal fistula; N17.9 Acute kidney failure, unspecified; R18.8 Other ascites; Z28.21 Immunization not carried out because of patient refusal; R09.02 Hypoxemia; I95.81 Postprocedural hypotension
CPT/HCPCS: 36415; 36430; 51610; 71045; 71260; 74018; 74177; 74450; 76770; 80048; 80069; 81001; 83735; 84145; 85025; 86850; 86900; 86901; 86923; 87077; 87086; 87186; 88307; 92526; 92610; 94640; 94664; 94760; 94762; 97110; 97161; 97166; 97530; 97535; A9270; C1751; J0694; J1100; J1170; J1650; J1940; J2250; J2370; J2405; J2543; J2550; J2704; J2795; J3010; J7050; J7060; J7120; P9016; P9047; Q9967

== ENCOUNTER 2022-10-18 08:53 | Inpatient (IN) | payer OTHER ==
[~2022-10-18] VITALS: Ht 134.6 cm; Wt 62.0 kg
[~2022-10-18 08:53] MED LIST changes: +GABAPENTIN600 MG PO; +HYDR1TAB94 PO; +LEVFLO500 PO; +METR500; +PRAVASTATIN SOD40 MG PO; +Q-Tussin100 MG/5 M PO
[2022-10-18 10:15] LABS: BASOPHILS ABSOLUTE AUTO 0.05 K/mm3 (0.00-0.23); BASOPHILS PERCENT AUTO 0 % (0-2); EOSINOPHILS ABSOLUTE AUTO 0.11 K/mm3 (0.00-0.68); EOSINOPHILS PERCENT AUTO 1 % (0-6); Hematocrit 29.5 % (33.0-51.0); Hemoglobin 9.3 g/dL (11.5-16.0); IMMATURE GRAN ABSOLUTE AUTO 1.03 K/mm3 (0.00-0.10); IMMATURE GRAN PERCENT AUTO 5 % (0-1); LYMPHOCYTES ABSOLUTE AUTO 1.04 K/mm3 (0.84-5.20); LYMPHOCYTES PERCENT AUTO 5 % (21-46); MONOCYTES ABSOLUTE AUTO 1.14 K/mm3 (0.16-1.47); MONOCYTES PERCENT AUTO 6 % (4-13); Mean Corpuscular HGB 26.2 pg (26.0-34.0); Mean Corpuscular HGB Conc 31.5 g/dL (31.5-36.5); Mean Corpuscular Volume 83 fL (80-100); Mean Platelet Volume 9.7 fL (9.1-12.4); NEUTROPHILS PERCENT AUTO 84 % (41-73); NRBC ABSOLUTE 0.07 K/mm3 (0.00-0.02); NRBC Auto 0.3 /100 WBC (0.0-0.2); RDW Coefficient Variation 17.6 % (11.7-14.2); RDW Standard Deviation 53.6 fL (35.1-46.3); Red Blood Cell Count 3.55 M/mm3 (3.80-5.20); White Blood Cell Count 20.37 K/mm3 (4.00-11.30)
[2022-10-18 10:19] LABS: Platelet Count 1026 K/mm3 (150-400)
[2022-10-18 10:35] LABS: Albumin, Blood 2.2 g/dL (3.4-5.0); Albumin/Globulin Ratio 0.4 (0.8-1.8); Bilirubin, Direct 0.2 mg/dL (0.0-0.3); Bilirubin, Indirect 0.2 mg/dL (0.1-0.7); Bilirubin, Total 0.4 mg/dL (0.1-1.0); Calcium, Blood 8.9 mg/dL (8.5-10.1); Creatinine, Blood 0.85 mg/dL (0.40-1.00); Globulin, Blood 5.1 g/dL (2.2-4.0); Potassium, Blood 4.3 mmol/L (3.5-5.5); Total Protein, Blood 7.3 g/dL (6.4-8.2)
[2022-10-18 10:52] LABS: Influenza A, PCR NEGATIVE (NEGATIVE); Influenza B, PCR NEGATIVE (NEGATIVE); SARS-Cov-2 (COVID-19) PCR, MMC NEGATIVE (NEGATIVE)
[2022-10-18 11:16] LABS: Resp Syncytial Virus, PCR POSITIVE (NEGATIVE)
[2022-10-18 11:30] LABS: Percent Saturation 8.8 % (15.0-50.0)
[2022-10-18] MEDS ORDERED: BENZ100A PO (15:18)
[2022-10-18] MEDS ORDERED: FAMO20 PO (20:52)
[2022-10-19 04:59] LABS: BASOPHILS ABSOLUTE AUTO 0.04 K/mm3 (0.00-0.23); BASOPHILS PERCENT AUTO 0 % (0-2); EOSINOPHILS ABSOLUTE AUTO 0.04 K/mm3 (0.00-0.68); EOSINOPHILS PERCENT AUTO 0 % (0-6); Hematocrit 24.8 % (33.0-51.0); Hemoglobin 7.5 g/dL (11.5-16.0); IMMATURE GRAN ABSOLUTE AUTO 0.64 K/mm3 (0.00-0.10); IMMATURE GRAN PERCENT AUTO 4 % (0-1); LYMPHOCYTES ABSOLUTE AUTO 0.92 K/mm3 (0.84-5.20); LYMPHOCYTES PERCENT AUTO 5 % (21-46); MONOCYTES ABSOLUTE AUTO 1.69 K/mm3 (0.16-1.47); MONOCYTES PERCENT AUTO 10 % (4-13); Mean Corpuscular HGB 25.8 pg (26.0-34.0); Mean Corpuscular HGB Conc 30.2 g/dL (31.5-36.5); Mean Corpuscular Volume 85 fL (80-100); Mean Platelet Volume 9.4 fL (9.1-12.4); NEUTROPHILS ABSOLUTE AUTO 13.65 K/mm3 (1.96-9.15); NEUTROPHILS PERCENT AUTO 80 % (41-73); NRBC ABSOLUTE 0.07 K/mm3 (0.00-0.02); NRBC Auto 0.4 /100 WBC (0.0-0.2); Platelet Count 934 K/mm3 (150-400); RDW Coefficient Variation 18.2 % (11.7-14.2); RDW Standard Deviation 55.6 fL (35.1-46.3); Red Blood Cell Count 2.91 M/mm3 (3.80-5.20); White Blood Cell Count 16.98 K/mm3 (4.00-11.30)
[2022-10-19 06:24] LABS: Albumin, Blood 1.8 g/dL (3.4-5.0); Anion Gap 7 mmol/L (6-16); Blood Urea Nitrogen 19 mg/dL (8-24); Bun/Creatinine Ratio 22.9 (12.0-20.0); CO2, Blood 24 mmol/L (21-32); Calcium, Blood 7.6 mg/dL (8.5-10.1); Chloride, Blood 110 mmol/L (98-108); Creatinine, Blood 0.83 mg/dL (0.40-1.00); Glomerular Filtration Rate 78 (60-); Glucose, Blood 121 mg/dL (70-99); Magnesium, Blood 2.2 mg/dL (1.6-2.4); Phosphorus, Blood 2.6 mg/dL (2.5-4.9); Potassium, Blood 3.9 mmol/L (3.5-5.5); Sodium, Blood 141 mmol/L (136-145)
--- NOTE | 2022-10-19 07:26 | NUR ---
A/OX3-4; DEV DELAYED/ FORGETFUL/ ANXIOUS/ COOPERATIVE WITH CARE. C/O CHRONIC BACK PAIN; PRN ANALGESICS PER ORDERS. SEVERE ANXIETY; FREQUENTLY REQUESTING THAT STAFF STAY IN HER ROOM AND HOLD HER HAND, STATES SHE IS SCARED AND IS DIFFICULT TO CONSOLE. PRN ANTI-ANXIETY MED ORDERED AND GIVEN WITH MINIMAL EFFECT OBSERVED. BEDREST (BASELINE AMBULATORY PER SISTER); 2X ASSIST WITH BEDPAN AND Q2 TURNS. INCONTINENT AT TIMES PER ER REPORT. IV ABX PER ORDERS. SLEEP PROMOTED. CALL LIGHT ENCOURAGED/ IN REACH; PATIENT CONTINUES TO YELL OUT AT TIMES. BED ALARM SET
--- NOTE | 2022-10-19 10:56 | NUR ---
RN NOTE MS DA SILVA IS ALERT, ORIENTATED TO SELF, LOCATION AND DATE. SHE SEEMS VERY ANXIOUS, SAID THAT SHE IS SCARED. REPEATS QUESTIONS, SEEMS FORGETFUL. UP TO BEDSIDE COMMODE THIS MORNING WITH 2 PERSON ASSIST AND GAIT BELT ON. SHE WAS ABLE TO STAND AND TRANSFER. SAT UP IN CHAIR WITH CHAIR ALARM IN PLACE CURRENTLY. HER SISTER VISITED THIS AM AND HAS GONE HOME FOR THE DAY. CALL LIGHT IN REACH.
--- NOTE | 2022-10-19 13:56 | NUR ---
RN NOTE FRIEND AT BEDSIDE VISITING PT. SHE IS MUCH CALMER AND CONTENT WITH HER FRIEND IN THE ROOM. SHE TOOK TYLENOL FOR ABDOMINAL PAIN AND SAID SHE HAS NO PAIN AT THE MOMENT. SHE DOES HAVE A STRONG COUGH AND REQUESTED COUGH MEDICATION. DR YOUSSEF INFORMED AND PUTTING IN MED ORDER. SHE IS TOLERATING SITTING UP IN MARKY CHAIR A LOT BETTER WITH HER FRIEND WITH HER.
--- NOTE | 2022-10-19 19:44 | NUR ---
SHIFT SUMMARY MS DA SILVA WAS LESS ANXIOUS WITH VISITOR PRESENCE TODAY THAN EARLIER IN THE SHIFT. ORIENTATED TO SELF, PLACE AND DATE, ABLE TO ANSWER QUESTIONS, BUT IS REPETATIVE AND FORGETFUL AT TIMES, NEEDING REASSURANCE. ASSISTED UP TO THE BEDSIDE COMMODE AND CHAIR WITH 2 PERSON ASSIST, SHE TOLERATED STAYING UP IN THE CHAIR FOR MUCH OF THE DAY. STRONG PRODUCTIVE COUGH, GIVEN TESSLON MANNY, STILL COUGHING AFTER MEDICATION. C/O ABDOMINAL PAIN EARLIER IN THE DAY HELPED WITH TYLENOL. HER SISTER SAID TYLENOL WORKS MUCH BETTER FOR HER THAN NORCO. NO FURTHER C/O ABDOMINAL PAIN. ABDOMINAL CARRIE IN PLACE, CLEANSED AND DRY DRESSING IN PLACE. SMALL R LATERAL ANKLE WOUND PHOTOGRAPHED AND REDRESSED. BED LOW, CALL LIGHT IN REACH, BED AND CHAIR ALARMS IN USE.
--- NOTE | 2022-10-19 21:49 | NUR ---
PT RN REPORTED PT ANXIOUS AND VOICED "WANTING TO ". UPON BEDSIDE ASSESSMENT, VOICED ANXIOUSNESS AND SCARED OF BEING ALONE. ATTEMPTED TO CALM PT WITH REASSURANCE, BUT NOT EFFECTIVE, PO ATARAX AND DESYREL GIVEN. MD WAS NOTIFIED AND MD SAW PT AND ORDERS FOR TRANSFER TO ICU 15 OBTAINED. PT'S NURSE TO F/U AND WILL TRANSFER. CALL MÓNICA DAVID
--- NOTE | 2022-10-19 22:19 | NUR ---
ORDERS FOR TRANSFER TO ICU FOR SUICIDAL IDEATIONS AND VOICED INTENT IN CHART. ICU NURSE "FATMATA" NOTIFIED. WILL TRANSFER PT TO ICU 15 PER MD ORDERS
--- NOTE | 2022-10-19 22:54 | NUR ---
PT ARRIVED FROM MEDICAL FLOOR. SHE STATED THAT SHE DID NOT MEAN THAT SHE WAS REALLY GOING TO HURT HERSELF AND JUST WANTED TO TALK TO HER SISTER. SHE STATED THAT SHE WOULD DO ANYTHING I ASKED OF HER AND THAT SHE WANTED TO GO HOME. I EDUCATED THE PT ON HER PNEUMONIA AND THE IMPORTANCE OF REMAINING IN THE HOSPITAL UNTIL THE DR DISCHARGES HER. SHE DENIES ANY PLAN TO KILL HERSELF AND SAYS THAT SHE HAS BEEN SAD BUT DOESN'T HAVE ANY PLANS TO KILL HERSELF. SHE IS ALERT AND ORIENTED X4, FOLLOWING DIRECTIONS, ABLE TO MAKE NEEDS KNOWN. SITTER AT BEDSIDE.
--- NOTE | 2022-10-20 00:58 | NUR ---
SPOKE TO DR ARAUJO ABOUT PT CURRENT MENTAL STATE AND LOW RISK OF SUICIDE BASED ON HER RESPONSES UPON ADMISSION TO ICU. REQUEST BREATHING TREATMENTS FOR PT DUE TO WHEEZING/COUGH RT/PNEUMONIA RSV. ORDERS GIVEN
[2022-10-20 03:44] LABS: BASOPHILS ABSOLUTE AUTO 0.02 K/mm3 (0.00-0.23); BASOPHILS PERCENT AUTO 0 % (0-2); EOSINOPHILS ABSOLUTE AUTO 0.04 K/mm3 (0.00-0.68); EOSINOPHILS PERCENT AUTO 0 % (0-6); Hematocrit 26.1 % (33.0-51.0); Hemoglobin 8.1 g/dL (11.5-16.0); IMMATURE GRAN ABSOLUTE AUTO 0.41 K/mm3 (0.00-0.10); IMMATURE GRAN PERCENT AUTO 3 % (0-1); LYMPHOCYTES ABSOLUTE AUTO 0.93 K/mm3 (0.84-5.20); LYMPHOCYTES PERCENT AUTO 7 % (21-46); MONOCYTES ABSOLUTE AUTO 1.71 K/mm3 (0.16-1.47); MONOCYTES PERCENT AUTO 13 % (4-13); Mean Corpuscular HGB 25.5 pg (26.0-34.0); Mean Corpuscular Volume 82 fL (80-100); Mean Platelet Volume 9.4 fL (9.1-12.4); NEUTROPHILS ABSOLUTE AUTO 10.37 K/mm3 (1.96-9.15); NEUTROPHILS PERCENT AUTO 77 % (41-73); NRBC ABSOLUTE 0.11 K/mm3 (0.00-0.02); NRBC Auto 0.8 /100 WBC (0.0-0.2); RDW Coefficient Variation 17.8 % (11.7-14.2); RDW Standard Deviation 53.8 fL (35.1-46.3); Red Blood Cell Count 3.18 M/mm3 (3.80-5.20); White Blood Cell Count 13.48 K/mm3 (4.00-11.30)
[2022-10-20 04:01] LABS: Platelet Count 1050 K/mm3 (150-400)
[2022-10-20 04:20] LABS: Albumin, Blood 1.9 g/dL (3.4-5.0); Anion Gap 4 mmol/L (6-16); Blood Urea Nitrogen 17 mg/dL (8-24); Bun/Creatinine Ratio 22.1 (12.0-20.0); CO2, Blood 25 mmol/L (21-32); Calcium, Blood 7.8 mg/dL (8.5-10.1); Chloride, Blood 110 mmol/L (98-108); Creatinine, Blood 0.77 mg/dL (0.40-1.00); Glomerular Filtration Rate 85 (60-); Glucose, Blood 107 mg/dL (70-99); Magnesium, Blood 2.4 mg/dL (1.6-2.4); Phosphorus, Blood 2.4 mg/dL (2.5-4.9); Potassium, Blood 4.1 mmol/L (3.5-5.5); Sodium, Blood 139 mmol/L (136-145)
--- NOTE | 2022-10-20 06:16 | NUR ---
PT VOICING WANTING TO , STAFF ATTEMPTED TO REIDRECT HER BEHAVIOR BUT SHE CONTINUED TO INSIST ON NOT WANTING TO LIVE, STATING "IF YOU LEAVE ME BY MYSELF I WILL KILL MYSELF." STAFF TRIED TO DIFFUSE SITUATION, PRN MEDS WERE RECIEVED BUT SI/BEHAVIOR PERSISTED. SCREENING PERFORMED AND WAS NOTIFIED. MD CAME TO EVALUATE PT AND WAS PLACE ON SUICIDAL PRECAUTIONS W/1:1 MONITORING BEING REQUIRED. SHE WAS T/F'D TO ICU D/T NO SITTER OR CAMERA MONITORING AVAILABLE ON MED FLOOR. REPORT PROVIDED TO ICU 15 RN BY KAYLEE REEVES. PT T/F'D IN STABLE CONDITION
--- NOTE | 2022-10-20 08:48 | NUR ---
PT IS COMPLAINING OF COUGH, SHE HAS DRY HACKING COUGH. SMALL AMOUNT OF RETURN, CLEAR THIN. HER SATS ARE >96%, BIOX OFF IT BOTHERS PATIENT. SHE IS NOT SUICIDAL AND HAS NO PLAN. SHE DOESN'T UNDERSTAND WHAT SHE HAS DONE WRONG TO "HAVE TO STAY" HERE. SHE IS CONTINENT OF URINE, THOUGHT SHE HAD TO HAVE A BM BUT WAS JUST FLATULANT. SURGICAL SITE IS C/D/I WITH DRESSING IN PLACE MIDLINE LOWER PELVIS, SCOPE HOLES WITH CARRIE INTACT. DENIES ANY C/O EXCEPT THE COUGHING.
--- NOTE | 2022-10-20 09:54 | NUR ---
PHONED FROM THE AIRPORT TO DISCUSS THE PATIENT, CALL TO TO RELAY THAT INFORMATION. PHONE CALL FOR OFFICIAL CONSULT TO DR.A HARRELL, SPOKE WITH CHRIS IN THE OFFICE, SHE WAS INFORMING HIM OF THE CONSULT. NO IR ON TODAY.
--- NOTE | 2022-10-20 10:24 | NUR ---
SURINDER WAS ASSISTED TO THE WHEELCHAIR AND WENT ON A RIDE WITH HER SISTER. SHE CONTINUES TO SAY THAT SHE WANTS TO GO HOME, BUT CONTINUES TO ASK FOR HELP WITH COUGHING OUT HER PHLEGM.
--- NOTE | 2022-10-20 11:35 | NUR ---
SISTER IS ADAMANT THAT THE PATIENT NEEDS TO HAVE PUREE AND NO STRAWS, THERE IS NO ORDERS FROM SPEECH THERAPY WITH THAT INFORMATION WHEN REVIEWING THE CHART. PUREE DIET ORDERED AND WILL SEE HOW PATIENT DOES.
--- NOTE | 2022-10-20 12:51 | NUR ---
WAS IN TO EVALUATE PATIENT, EXAM DONE. ORDERS TO HOLD LOVENOX AND NPO AFTER MIDNIGHT FOR POSSIBLE IR TOMORROW. PT MADE AWARE, SISTER INFORMED WELL. PT CONTINUES TO COUGH AND IS VERY FRUSTRATED BY THIS. SHE HAS BEEN GIVEN BOTH GUIFENASIN AND TESSALON PERLES FOR RELIEF. POSITIVE REINFORCEMENT GIVEN. PT REMAINS SITTING UP IN THE CHAIR. IS STATING SHE IS GETTING TIRED. SHE HAS BEEN GIVEN A ROOM ON THE MEDICAL FLOOR.
--- NOTE | 2022-10-20 14:30 | NUR ---
BED BATH COMPLETED AND REPORT GIVEN TO RYAN MONTENEGRO RN. PT TRANSFERRED VIA W/C WITH PCT.
--- NOTE | 2022-10-20 19:25 | NUR ---
PT PLEASANT BUT CHILDLIKE SINCE ADMIT THIS AFT. IV JUST FAILED, AND I REPLACED . TRIED 2MG OF MORPHINE FOR FIRST ROUND ON PAIN MED. AFTER ADMINISTRATION, SHE FELL ASLEEP FOR ABOUT 2 HRS. COUGH AND RIB PAIN IMPROVED. WILL MONITOR. SISTER IN ROOM THIS LATE AFT TO NOW. STATES SHE BECOMING MORE AWAKE AND ALERT. STATES IMPROVEMENT TODAY. TERRELL RN TO MONITOR/ NO OTHER CONCERNS NOTED. BED IN LOW POSITION, CALLLITE IN REACH, BED ALARM ON FOR SAFETY
--- NOTE | 2022-10-21 06:37 | NUR ---
SHIFT SUMMARY PT A&O 3- WHICH IS PT'S BASELINE ACCORDING TO SISTER XIN WHO WAS IN ROOM AT BEGINNING OF SHIFT- SPOKE WITH SISTER RE: PT HAVING SI THOUGHTS IN THE ED- ACCORDING TO SISTER THAT PT WILL SAY SHE IS GOING TO HARM HERSELF TO GET WHAT SHE WANTS- ACCORDING TO SISTER IT'S A BEHAVIORAL ISSUE AND NO ATTEMPTS TO HARM SELF- PT USED CALL LIGHT A FEW TIMES IN THE NIGHT AND REQUESTED THAT SOMEONE STAY IN ROOM WITH PT- INFORMED PT THAT WE CAN'T STAY IN ROOM AND REASSURED PT THAT WE ARE RIGHT OUT HER DOOR- PT STATED UNDERSTANDING- CALL TO DR. ARAUJO RE: NO CBGS ORDERED- ORDERED CBGS PRN IF PT HAS S/S OF HYPOGLYCEMIA- MEDICATED PT FOR PAIN IN CHEST (NO CARDIAC) AND LOWER BACK PAIN - PT REPORTS PAIN HAPPENS IN CHEST WHEN SHE COUGHS ONLY- GAVE MORPHINE 3MG IV - PT TOLERATED WELL AND GOT RELIEF FROM PAIN MED-, PT NPO FOR SWALLOW EVAL AND POSSIBLE PROCEDURE -PT HAS MOMENTS OF YELLING OUT THAT SHE IS SCARED, ACCORDING TO SISTER THIS IS HER BASELINE- REORIENTED PT MULTIPLE TIMES AND PT ABLE TO CALM AFTER FEW MINUTES GAVE MORPHINE 5MG IV 0615 FOR BACK/ABD PAIN, BED LOW POSITION-CALL LIGHT WITHIN REACH, BED ALARM IN PLACE
[2022-10-21 07:55] LABS: BASOPHILS ABSOLUTE AUTO 0.03 K/mm3 (0.00-0.23); BASOPHILS PERCENT AUTO 0 % (0-2); EOSINOPHILS ABSOLUTE AUTO 0.08 K/mm3 (0.00-0.68); EOSINOPHILS PERCENT AUTO 0 % (0-6); Hematocrit 25.6 % (33.0-51.0); Hemoglobin 7.9 g/dL (11.5-16.0); IMMATURE GRAN ABSOLUTE AUTO 0.39 K/mm3 (0.00-0.10); IMMATURE GRAN PERCENT AUTO 2 % (0-1); LYMPHOCYTES ABSOLUTE AUTO 1.18 K/mm3 (0.84-5.20); LYMPHOCYTES PERCENT AUTO 6 % (21-46); MONOCYTES ABSOLUTE AUTO 1.65 K/mm3 (0.16-1.47); MONOCYTES PERCENT AUTO 9 % (4-13); Mean Corpuscular HGB 25.2 pg (26.0-34.0); Mean Corpuscular HGB Conc 30.9 g/dL (31.5-36.5); Mean Corpuscular Volume 82 fL (80-100); Mean Platelet Volume 9.5 fL (9.1-12.4); NEUTROPHILS ABSOLUTE AUTO 15.93 K/mm3 (1.96-9.15); NEUTROPHILS PERCENT AUTO 83 % (41-73); NRBC ABSOLUTE 0.11 K/mm3 (0.00-0.02); NRBC Auto 0.6 /100 WBC (0.0-0.2); RDW Coefficient Variation 18.2 % (11.7-14.2); RDW Standard Deviation 53.1 fL (35.1-46.3); Red Blood Cell Count 3.13 M/mm3 (3.80-5.20); White Blood Cell Count 19.26 K/mm3 (4.00-11.30)
[2022-10-21 08:01] LABS: Platelet Count 1201 K/mm3 (150-400)
[2022-10-21 08:27] LABS: Bun/Creatinine Ratio 21.4 (12.0-20.0); Creatinine, Blood 0.75 mg/dL (0.40-1.00)
[2022-10-21 11:45] LABS: International Normalized Ratio 1.14; Prothrombin Time Results 11.9 Sec (9.7-11.5)
--- NOTE | 2022-10-21 15:11 | NUR ---
Patient NPO since midnight, this morning Dr. Chao & Dr. Villa assessed patient at the bedside. Plan is to insert abdominal drain & go to laboratory mechanic helper. Patient anxious, IV Ativan given before procedure & then RN had to give another dose before Radiology could place drain. human resources technician called & stated patient was anxious, scared, and could not stay still. Patient back to room & drain placed in abd, red/clear drainage noted in bag. Patient denies pain/discomfort. In bed waiting to go to laboratory mechanic helper.
--- NOTE | 2022-10-22 04:53 | NUR ---
SHIFT SUMMARY PT A&O X 2- PT ANXIOUS AND YELLING THAT SHE NEEDS HELP- PT UPSET BECAUSE SISTER XIN ISN'T HERE- PT THREATENED THIS RN THAT SHE WILL START THROWING STUFF IF I DON'T GET HER SISTER OR STAY IN THERE WITH HER- CALL TO DR. KOENIG RE: BEHAVIOR AND NEW ORDER FOR HALDOL 2.5MG IV- ASSISTED PT ON BEDPAN FOR BM- PT YELLS HELP WHILE ASSISTING - GAVE MORPHINE 5MG IV FOR ABD/BACK/HEAD PAIN X2 T/O SHIFT D5 1/2NS INFUSING AT 75ML/HR- UROSIL DRAIN LEFT SIDE ABDOMEN- PUT OUT 700 ML SEROSANGUINOUS FLUID- CALL TO DR. KOENIG SECOND TIME THAT PT IS CALLING OUT AND CONTINUES TO THREATEN THAT SHE IS GOING TO THROW STUFF AND HITS AT STAFF- NEW ORDER FOR HALDOL 5MG IV ONCE- PT CONTINUED TO YELL FROM ROOM DEMANDING TO GO HOME- PT RESTLESS MOST OF NIGHT AND WAS AWAKE MOST OF SHIFT - BED LOW POSITION, CALL LIGHT WITHIN REACH, BED ALARM IN PLACE
[2022-10-22 06:48] LABS: BASOPHILS ABSOLUTE AUTO 0.06 K/mm3 (0.00-0.23); BASOPHILS PERCENT AUTO 0 % (0-2); EOSINOPHILS ABSOLUTE AUTO 0.02 K/mm3 (0.00-0.68); EOSINOPHILS PERCENT AUTO 0 % (0-6); Hematocrit 25.4 % (33.0-51.0); Hemoglobin 8.2 g/dL (11.5-16.0); IMMATURE GRAN ABSOLUTE AUTO 0.33 K/mm3 (0.00-0.10); IMMATURE GRAN PERCENT AUTO 2 % (0-1); LYMPHOCYTES ABSOLUTE AUTO 1.21 K/mm3 (0.84-5.20); LYMPHOCYTES PERCENT AUTO 8 % (21-46); MONOCYTES ABSOLUTE AUTO 1.66 K/mm3 (0.16-1.47); MONOCYTES PERCENT AUTO 11 % (4-13); Mean Corpuscular HGB 25.4 pg (26.0-34.0); Mean Corpuscular HGB Conc 32.3 g/dL (31.5-36.5); Mean Corpuscular Volume 79 fL (80-100); Mean Platelet Volume 9.3 fL (9.1-12.4); NEUTROPHILS ABSOLUTE AUTO 12.55 K/mm3 (1.96-9.15); NEUTROPHILS PERCENT AUTO 79 % (41-73); NRBC ABSOLUTE 0.06 K/mm3 (0.00-0.02); NRBC Auto 0.4 /100 WBC (0.0-0.2); RDW Coefficient Variation 17.6 % (11.7-14.2); RDW Standard Deviation 49.6 fL (35.1-46.3); Red Blood Cell Count 3.23 M/mm3 (3.80-5.20); White Blood Cell Count 15.83 K/mm3 (4.00-11.30)
[2022-10-22 06:52] LABS: Albumin, Blood 1.8 g/dL (3.4-5.0); Albumin/Globulin Ratio 0.4 (0.8-1.8); Bilirubin, Total 0.2 mg/dL (0.1-1.0); Bun/Creatinine Ratio 17.2 (12.0-20.0); Calcium, Blood 7.6 mg/dL (8.5-10.1); Creatinine, Blood 0.47 mg/dL (0.40-1.00); Globulin, Blood 4.4 g/dL (2.2-4.0); Potassium, Blood 3.6 mmol/L (3.5-5.5); Total Protein, Blood 6.2 g/dL (6.4-8.2)
[2022-10-22 06:53] LABS: Platelet Count 1089 K/mm3 (150-400)
--- NOTE | 2022-10-22 11:02 | NUR ---
GAVE REPORT TO RN FOR TRANSFER TO SAME FLOOR. DRAIN EMPTIED= 450 ML ALL BELONGINGS MOVED WITH PT. SISTER AT BEDSIDE.
[2022-10-23 06:29] LABS: BASOPHILS ABSOLUTE AUTO 0.02 K/mm3 (0.00-0.23); BASOPHILS PERCENT AUTO 0 % (0-2); EOSINOPHILS ABSOLUTE AUTO 0.14 K/mm3 (0.00-0.68); EOSINOPHILS PERCENT AUTO 1 % (0-6); Hematocrit 26.5 % (33.0-51.0); Hemoglobin 8.3 g/dL (11.5-16.0); IMMATURE GRAN PERCENT AUTO 2 % (0-1); LYMPHOCYTES ABSOLUTE AUTO 0.88 K/mm3 (0.84-5.20); LYMPHOCYTES PERCENT AUTO 7 % (21-46); MONOCYTES ABSOLUTE AUTO 1.79 K/mm3 (0.16-1.47); MONOCYTES PERCENT AUTO 15 % (4-13); Mean Corpuscular HGB 25.2 pg (26.0-34.0); Mean Corpuscular HGB Conc 31.3 g/dL (31.5-36.5); Mean Corpuscular Volume 80 fL (80-100); Mean Platelet Volume 9.3 fL (9.1-12.4); NEUTROPHILS ABSOLUTE AUTO 9.19 K/mm3 (1.96-9.15); NEUTROPHILS PERCENT AUTO 75 % (41-73); NRBC ABSOLUTE 0.05 K/mm3 (0.00-0.02); NRBC Auto 0.4 /100 WBC (0.0-0.2); Platelet Count 971 K/mm3 (150-400); RDW Coefficient Variation 18.1 % (11.7-14.2); RDW Standard Deviation 52.4 fL (35.1-46.3); White Blood Cell Count 12.22 K/mm3 (4.00-11.30)
[2022-10-23 06:53] LABS: Albumin, Blood 1.7 g/dL (3.4-5.0); Albumin/Globulin Ratio 0.4 (0.8-1.8); Bilirubin, Total 0.2 mg/dL (0.1-1.0); Bun/Creatinine Ratio 14.1 (12.0-20.0); Calcium, Blood 7.7 mg/dL (8.5-10.1); Creatinine, Blood 0.43 mg/dL (0.40-1.00); Globulin, Blood 4.3 g/dL (2.2-4.0); Potassium, Blood 3.4 mmol/L (3.5-5.5)
--- NOTE | 2022-10-23 07:37 | NUR ---
TRIMMING MACHINE SET UP OPERATOR SUMMARY PT SLEPT WELL T/O THE SHIFT. NO ACUTE CHAGNES. PT AROUSABLE F/CARE AND MEDICATION ADMINISTRATION. PT REQUESTED ASSISTANCE T/BED MATTHEWS 1X; VERY LITTLE URINE OUTPUT. PT TAKES MEDS CRUSHED IN APPLESAUCE. PT VERY HARD OF HEARING--HEARING AIDS WITH PT BUT HEARING NOT IMPROVED WHEN WEARING. PT HAS NOT USED CALL LIGHT F/ASSISTANCE BUT MAKES NEEDS KNOWN WHEN ROUNDING. ABD DRAIN APROX 500ML OUTPUT OF SEROSANGUINEOUS FLUID. BED LOCKED/LOW AND CALL LIGHT IN REACH.
--- NOTE | 2022-10-23 19:37 | NUR ---
pt is a/ox3, pleasant and cooperative, pt is up with 1-2 person assist to the chair and the bsc. the pt appears to be breathing easily on ra at this time. pt denied abd pain today. pt is mildly anxious, the pt was up in the chair and the wheelchair x2 today. pts sister was at the bedside for most of the day. call light in reach. will continue to monitor and assess for changes
--- NOTE | 2022-10-24 04:18 | NUR ---
SHIFT SUMMARY: PT A/Ox2. Sometimes uses call light and other times yells out into the hallway. Pt did not sleep well. PRN trazadone was given but she still did not sleep during the night. She had PRN tesslan pearles for c/o cough. Had generalized pain- recieved PRN tylenol. Her drain has had large amounts of serosang drainage. She denies nausea, dizziness, numbness/tingling. [place] slight SOB, RT came and did breathing tx in middle of night.
[2022-10-24 09:22] LABS: BASOPHILS ABSOLUTE AUTO 0.02 K/mm3 (0.00-0.23); BASOPHILS PERCENT AUTO 0 % (0-2); EOSINOPHILS PERCENT AUTO 2 % (0-6); Hematocrit 26.1 % (33.0-51.0); IMMATURE GRAN PERCENT AUTO 2 % (0-1); LYMPHOCYTES ABSOLUTE AUTO 1.03 K/mm3 (0.84-5.20); LYMPHOCYTES PERCENT AUTO 11 % (21-46); MONOCYTES ABSOLUTE AUTO 1.13 K/mm3 (0.16-1.47); MONOCYTES PERCENT AUTO 12 % (4-13); Mean Corpuscular HGB 24.8 pg (26.0-34.0); Mean Corpuscular HGB Conc 30.7 g/dL (31.5-36.5); Mean Corpuscular Volume 81 fL (80-100); Mean Platelet Volume 9.5 fL (9.1-12.4); NEUTROPHILS ABSOLUTE AUTO 7.11 K/mm3 (1.96-9.15); NEUTROPHILS PERCENT AUTO 73 % (41-73); NRBC ABSOLUTE 0.04 K/mm3 (0.00-0.02); NRBC Auto 0.4 /100 WBC (0.0-0.2); Platelet Count 998 K/mm3 (150-400); RDW Standard Deviation 53.1 fL (35.1-46.3); Red Blood Cell Count 3.22 M/mm3 (3.80-5.20); White Blood Cell Count 9.69 K/mm3 (4.00-11.30)
[2022-10-24 09:39] LABS: Bun/Creatinine Ratio 12.9 (12.0-20.0); Calcium, Blood 7.9 mg/dL (8.5-10.1); Creatinine, Blood 0.46 mg/dL (0.40-1.00); Potassium, Blood 3.7 mmol/L (3.5-5.5)
--- NOTE | 2022-10-24 20:03 | NUR ---
SHIFT SUMMARY PT IS ROOM AIR, IV TO RIGHT WRIST INFUSING ABX. PT WORKED WITH PT TODAY. SHE SAT IN HER CHAIR FROM 10-1300. PT REQUIRES EXTENSIVE ENCOURAGEMENT TO GET OUT OF BED. DEVELOPMENTAL DELAY, HER SISTER IS PRESENT AT BEDSIDE THROUGH OUT MOST OF SHIFT. INCONTINENT IN ATTENDS. ABLE TO TRANSFER TO BSC VIA TWO STAFF MEMBERS AND A WALKER. DR. SALAS ROUNDED, WITH ORDERS TO DC FLUIDS BECAUSE PT IS TOLERATING PO INTAKE. PT BECOMES UPSET WHEN HER SISTER LEAVES. ABLE TO FOLLOW DIRECTIONS, BUT IMPULSIVE WITH CHILDLIKE AFFECT. RN REMOVED CARRIE AND PLACED STERISTRIPS PER MD ORDERS. HARPREET DRAIN IS DRAINING LARGE AMOUNTS OF SANGUINOUS FLUID. DRESSING IS C/D/I TO DRAIN.
[2022-10-25 06:16] LABS: BASOPHILS ABSOLUTE AUTO 0.03 K/mm3 (0.00-0.23); BASOPHILS PERCENT AUTO 0 % (0-2); EOSINOPHILS ABSOLUTE AUTO 0.23 K/mm3 (0.00-0.68); EOSINOPHILS PERCENT AUTO 2 % (0-6); Hematocrit 25.4 % (33.0-51.0); Hemoglobin 7.8 g/dL (11.5-16.0); IMMATURE GRAN ABSOLUTE AUTO 0.26 K/mm3 (0.00-0.10); IMMATURE GRAN PERCENT AUTO 2 % (0-1); LYMPHOCYTES ABSOLUTE AUTO 1.47 K/mm3 (0.84-5.20); LYMPHOCYTES PERCENT AUTO 14 % (21-46); MONOCYTES ABSOLUTE AUTO 1.86 K/mm3 (0.16-1.47); MONOCYTES PERCENT AUTO 17 % (4-13); Mean Corpuscular HGB 24.9 pg (26.0-34.0); Mean Corpuscular HGB Conc 30.7 g/dL (31.5-36.5); Mean Corpuscular Volume 81 fL (80-100); Mean Platelet Volume 9.5 fL (9.1-12.4); NEUTROPHILS ABSOLUTE AUTO 6.84 K/mm3 (1.96-9.15); NEUTROPHILS PERCENT AUTO 64 % (41-73); NRBC ABSOLUTE 0.02 K/mm3 (0.00-0.02); NRBC Auto 0.2 /100 WBC (0.0-0.2); Platelet Count 932 K/mm3 (150-400); RDW Coefficient Variation 18.3 % (11.7-14.2); RDW Standard Deviation 53.6 fL (35.1-46.3); Red Blood Cell Count 3.13 M/mm3 (3.80-5.20); White Blood Cell Count 10.69 K/mm3 (4.00-11.30)
[2022-10-25 06:46] LABS: Albumin, Blood 1.8 g/dL (3.4-5.0); Albumin/Globulin Ratio 0.4 (0.8-1.8); Bilirubin, Total 0.3 mg/dL (0.1-1.0); Bun/Creatinine Ratio 13.8 (12.0-20.0); Calcium, Blood 7.7 mg/dL (8.5-10.1); Creatinine, Blood 0.44 mg/dL (0.40-1.00); Globulin, Blood 4.4 g/dL (2.2-4.0); Potassium, Blood 3.7 mmol/L (3.5-5.5); Total Protein, Blood 6.2 g/dL (6.4-8.2)
--- NOTE | 2022-10-25 07:41 | NUR ---
SHIFT SUMMARY A&O X 2-3. VSS. HAS BEEN PLEASANT AND COOPERATIVE WITH CARE. ASSIST X 2 TO BEDSIDE COMMODE. PT HAD LARGE BM X1 THIS SHIFT. SPECIMEN COLLECTED FROM HARPREET DRAIN AND SENT TO LAB. PT SLEPT THROUGHOUT THE NIGHT. BED ALARM ON.
--- NOTE | 2022-10-25 19:22 | NUR ---
PT TOLERATED WORKING WITH PHYSICAL THERAPY MORE TODAY, WALKED TWICE IN HER ROOM AND TRANSFERRED FROM WHEELCHAIR TO BSC AND FROM BED TO CHAIR. SISTER PRESENT AND MANY VISITORS TODAY. ROOM AIR. IV IN RIGHT WRIST BEGAN TO LEAK AT SHIFT CHANGE. INCONTINENT IN ATTENDS. STILL AWAITING URINE SAMPLE, SHE HAS BEEN VOIDING IN ATTENDS AND UNABLE TO MAKE IT TO THE BSC TO GIVE URINE SAMPLE. CREATININE FOUND IN HER HARPREET DRAIN OUTPUT FROM SAMPLE.
[2022-10-26 06:23] LABS: BASOPHILS ABSOLUTE AUTO 0.01 K/mm3 (0.00-0.23); BASOPHILS PERCENT AUTO 0 % (0-2); EOSINOPHILS ABSOLUTE AUTO 0.17 K/mm3 (0.00-0.68); EOSINOPHILS PERCENT AUTO 2 % (0-6); Hematocrit 23.8 % (33.0-51.0); Hemoglobin 7.4 g/dL (11.5-16.0); IMMATURE GRAN ABSOLUTE AUTO 0.16 K/mm3 (0.00-0.10); IMMATURE GRAN PERCENT AUTO 2 % (0-1); LYMPHOCYTES ABSOLUTE AUTO 1.43 K/mm3 (0.84-5.20); LYMPHOCYTES PERCENT AUTO 16 % (21-46); MONOCYTES ABSOLUTE AUTO 1.18 K/mm3 (0.16-1.47); MONOCYTES PERCENT AUTO 13 % (4-13); Mean Corpuscular HGB 24.8 pg (26.0-34.0); Mean Corpuscular HGB Conc 31.1 g/dL (31.5-36.5); Mean Corpuscular Volume 80 fL (80-100); Mean Platelet Volume 9.4 fL (9.1-12.4); NEUTROPHILS ABSOLUTE AUTO 6.25 K/mm3 (1.96-9.15); NEUTROPHILS PERCENT AUTO 68 % (41-73); Platelet Count 849 K/mm3 (150-400); RDW Coefficient Variation 17.8 % (11.7-14.2); RDW Standard Deviation 51.9 fL (35.1-46.3); Red Blood Cell Count 2.98 M/mm3 (3.80-5.20)
[2022-10-26 06:45] LABS: Albumin, Blood 1.7 g/dL (3.4-5.0); Albumin/Globulin Ratio 0.4 (0.8-1.8); Bilirubin, Total 0.3 mg/dL (0.1-1.0); Bun/Creatinine Ratio 19.6 (12.0-20.0); Calcium, Blood 7.8 mg/dL (8.5-10.1); Creatinine, Blood 0.46 mg/dL (0.40-1.00); Globulin, Blood 4.3 g/dL (2.2-4.0); Potassium, Blood 3.7 mmol/L (3.5-5.5)
--- NOTE | 2022-10-26 07:55 | NUR ---
SHIFT SUMMARY ALERT AND ORIENTED. VSS. NEW IV PLACED TO LEFT FOREARM BY LINETTE Szymanski RN. PT UP MOST OF THE NIGHT CROCHETTING. ASSIST X 2 TO BSC AND HAD BM. NEEDS URINE SAMPLE. HARPREET DRAIN TO LEFT SIDE ABDOMEN PATENT AND DRAINING YELLOW FLUID.BED ALARM ON. WILL CONTINUE TO MONITOR AND FOLLOW POC.
--- NOTE | 2022-10-26 18:49 | NUR ---
SUMMARY- PT A/O X3- DEV DELAYED. SISTER AT BEDSIDE MOST OF THE DAY, INVOLVED IN PT CAER. PT UP IN THE WHEELCHAIR AND CHAIR MOST OF THE DAY. 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 AWAITING PLAN. HARPREET DRAIN PUTTING LG AMNOUNTS CLEAR YELLOW/ORANGE FLUID. PT TOLERATING THICK LIQ AND MECH SOFT DIET SMALL AMOUNTS. MEDICATED FOR HIP PAIN TYLENOL THIS PM. PT CONT OF URINE.
--- NOTE | 2022-10-27 05:54 | NUR ---
SHIFT SUMMARY PT A&O X 2- PT CONFUSED- PT [place] - PT'S SISTER REPORTS HEARING AIDE BATTERIES WERE REPLACED BUT ISN'T WORKING RIGHT ENCOURAGED PT'S SISTER TO GO HOME D/T SHE AND THE PATIENT WERE ARGUING- PT CONTINUES TO YELL OUT FOR HER SISTER AND SHORT WITH SISTER IF SHE DOESN'T DO WHAT SHE ASK FOR RIGHT AWAY- ENCOURAGED SISTER TO GO HOME AND REST AND THAT PATIENT WILL BE TAKEN CARE OF - ASSISTED PT TO BED DURING SCHEDULED MEDS- PT TOLERATED WELL- IV INFUSED WITHOUT PROBLEMS- PT YELLS OUT THIS RN NAME WHEN NEED ASSISTANCE- DRAIN PUTTING OUT SEROSANGUINOUS DRAINAGE BED LOW POSITION, CALL LIGHT WITHIN REACH, BED ALARM IN PLACE
--- NOTE | 2022-10-27 20:13 | NUR ---
PATIENT UP TO BED SIDE CHAIR MOST OF SHIFT. EDEMA PRESENT IN FEET AND LOWER LEGS. ONE COMPLAINT OF PAIN IN THE INCISION AREA, BUT THEN SAID IT WAS "ITCHY'. SHE DID WANT TYLENOL FOR THE DISCOMFORT- EFFECTIVE. LS HAVE SCATTERED CRACKLES BUT PATIENT DOES NOT APPEAR SOB DURING SHIFT. SHE HAS A DRAIN IN THE ABDOMINAL AREA DRAINING A ASHA COLOR. PATIENT [place], AND SEEMS TO HAVE DIFFICULTY HEARING EVEN WITH HEARING AID PRESENT. SIDE NOTE- ACCORDING TO OUR RECORDS PATIENT IS ABLE TO GET UP WITH THE ASSIST OF ONE AND WALKER. THIS EVENING, SHE WOULD NOT ATTEMPT TO GET UP WITHOUT TWO STAFF PRESENT. SHE DID HOWEVER GET UP WITH JUST ONE FAMILY MEMBER HELPING,
--- NOTE | 2022-10-28 06:18 | NUR ---
SHIFT SUMMARY PT A&O X 2-3- PT ARGUING WITH SISTER XIN AT BEGINNING OF SHIFT- PT REPEATILY TOLD SISTER THAT SHE WOULD THROW SOMETHING OR SCREAM IF SHE WAS TO LEAVE HER- INFORMED PT OF VISITING TIMES AND ENCOURAGED PT TO NOT TREAT SISTER THAT WAY- GAVE PRN HYDROXIZINE FOR INCREASED ANXIETY AND TRAZADONE PER PT REQUEST- PT CALMED ONCE SISTER LEFT- PT CALLED APPROPRIATELY T/O NIGHT TO URINATE OR THAT SHE WAS INCONTIENT OF URINE- HARPREET DRAIN CONTINUES TO DRAIN SEROUSANGIOUS FLUID AT BEGINNING OF SHIFT- 2ND EMPTYING APPEARED TO BE CLEAR AND URINE SMELL AND COLOR, SITE = C/D & I, BED LOW POSITION, CALL LIGHT WITHIN REACH, BED ALARM IN PLACE
[2022-10-28 06:35] LABS: BASOPHILS ABSOLUTE AUTO 0.02 K/mm3 (0.00-0.23); BASOPHILS PERCENT AUTO 0 % (0-2); EOSINOPHILS ABSOLUTE AUTO 0.24 K/mm3 (0.00-0.68); EOSINOPHILS PERCENT AUTO 3 % (0-6); Hematocrit 24.7 % (33.0-51.0); Hemoglobin 7.5 g/dL (11.5-16.0); IMMATURE GRAN ABSOLUTE AUTO 0.23 K/mm3 (0.00-0.10); IMMATURE GRAN PERCENT AUTO 2 % (0-1); LYMPHOCYTES ABSOLUTE AUTO 1.21 K/mm3 (0.84-5.20); LYMPHOCYTES PERCENT AUTO 12 % (21-46); MONOCYTES ABSOLUTE AUTO 1.13 K/mm3 (0.16-1.47); MONOCYTES PERCENT AUTO 12 % (4-13); Mean Corpuscular HGB 24.1 pg (26.0-34.0); Mean Corpuscular HGB Conc 30.4 g/dL (31.5-36.5); Mean Corpuscular Volume 79 fL (80-100); Mean Platelet Volume 9.6 fL (9.1-12.4); NEUTROPHILS ABSOLUTE AUTO 6.95 K/mm3 (1.96-9.15); NEUTROPHILS PERCENT AUTO 71 % (41-73); Platelet Count 812 K/mm3 (150-400); RDW Coefficient Variation 17.9 % (11.7-14.2); RDW Standard Deviation 50.8 fL (35.1-46.3); Red Blood Cell Count 3.11 M/mm3 (3.80-5.20); White Blood Cell Count 9.78 K/mm3 (4.00-11.30)
[2022-10-28 07:00] LABS: Albumin, Blood 1.9 g/dL (3.4-5.0); Anion Gap 4 mmol/L (6-16); Blood Urea Nitrogen 7 mg/dL (8-24); Bun/Creatinine Ratio 13.3 (12.0-20.0); CO2, Blood 25 mmol/L (21-32); Calcium, Blood 8.1 mg/dL (8.5-10.1); Chloride, Blood 111 mmol/L (98-108); Creatinine, Blood 0.53 mg/dL (0.40-1.00); Glomerular Filtration Rate 102 (60-); Glucose, Blood 79 mg/dL (70-99); Magnesium, Blood 1.9 mg/dL (1.6-2.4); Phosphorus, Blood 2.6 mg/dL (2.5-4.9); Potassium, Blood 3.9 mmol/L (3.5-5.5); Sodium, Blood 140 mmol/L (136-145)
--- NOTE | 2022-10-28 19:35 | NUR ---
SHIFT SUMMARY PT A&OX2 AND PLEASANT. PT NPO ALL DAY WAITING FOR PROCEDURE. PT COOPERATIVE OF CARE. NO C/O PAIN. PT UP TO CHAIR A TWICE THROUGHOUT DAY. VERBALIZED THE NEED TO USE BEDSIDE COMMODE AND WAS ABLE TO HAVE A SOFT BM. SISTER AT BEDSIDE MOST OF THE DAY. EVENING BLOOD GLUCOSE WAS 64. DR YOUSSEF NOTIFIED AND ORDERS GIVEN. GLUCOSE GEL GIVEN AND BG RECHECKED AT 1830, PT'S BLOOD SUGAR WAS 67. PHARMACY SENT REMAINING GLUCOSE GEL. REPORT GIVEN TO PARTS SALES REPRESENTATIVE NURSE AND SHE STATED SHE WOULD GIVE PT REMAING GLUCOSE GEL.
[2022-10-29 05:11] LABS: BASOPHILS ABSOLUTE AUTO 0.01 K/mm3 (0.00-0.23); BASOPHILS PERCENT AUTO 0 % (0-2); EOSINOPHILS PERCENT AUTO 1 % (0-6); Hematocrit 25.1 % (33.0-51.0); Hemoglobin 7.8 g/dL (11.5-16.0); IMMATURE GRAN ABSOLUTE AUTO 0.09 K/mm3 (0.00-0.10); IMMATURE GRAN PERCENT AUTO 1 % (0-1); LYMPHOCYTES ABSOLUTE AUTO 1.25 K/mm3 (0.84-5.20); LYMPHOCYTES PERCENT AUTO 14 % (21-46); MONOCYTES PERCENT AUTO 13 % (4-13); Mean Corpuscular HGB 24.7 pg (26.0-34.0); Mean Corpuscular HGB Conc 31.1 g/dL (31.5-36.5); Mean Corpuscular Volume 79 fL (80-100); Mean Platelet Volume 9.7 fL (9.1-12.4); NEUTROPHILS ABSOLUTE AUTO 6.12 K/mm3 (1.96-9.15); NEUTROPHILS PERCENT AUTO 71 % (41-73); Platelet Count 722 K/mm3 (150-400); RDW Standard Deviation 51.7 fL (35.1-46.3); Red Blood Cell Count 3.16 M/mm3 (3.80-5.20); White Blood Cell Count 8.67 K/mm3 (4.00-11.30)
[2022-10-29 05:25] LABS: Magnesium, Blood 1.9 mg/dL (1.6-2.4); Phosphorus, Blood 2.5 mg/dL (2.5-4.9)
--- NOTE | 2022-10-29 06:16 | NUR ---
SHIFT SUMMARY PT WAS NPO AT BEGINNING OF SHIFT AWAITING FOR PROCEDURE- PT TOOK GLUCOSE GEL - CALL TO [facility] [employer] F[employer]CE FABRICATOR RE: IF PT IS GOING FOR PROCEDURE TONIGHT- RETURN CALL FROM DELMY THAT SURGERY IS ON WAY TO GET PT FOR PROCEDURE- NOTIFIED SISTER OF PROCEDURE SOON- 2229 PT RETURNED TO ROOM VIA CHRISTINA- PT DROWSY, REPORT FROM RN-NEW IV STARTED IN OR D/T LFA INFILTRATED SISTER AND FRIEND AT BEDSIDE- SISTER AND FRIEND LEFT FOR THE NIGHT- 2356 PT CBG 75- PT SAT UP IN BED ATE APPLE SAUCE AND PUDDING-APPLIED 2L O2 VIA NC D/T PT SATS DECREASING TO 88 AT TIMES. RECHECKED CBG 0200= 104- MEDICATED PT WITH MORPHINE FOR LEFT FLANK PAIN - PT YELLED OUT T/O THE NIGHT- PT REPEATILY ASKED STAFF TO ROCK HER IN THEIR ARMS, STAY WITH HER AND DON'T LEAVE HER, REORIENTED PT TO HOSPITAL AND ENCOURAGED,PT TO STOP YELLING- NEUROS Q4 DONE WITH NO CHANGES- PT CONTINUES TO BE ON 2L O2 VIA NC D/T PT DROWSY- BED LOW POSITION, CALL LIGHT WITHIN REACH, BED ALARM IN PLACE
--- NOTE | 2022-10-29 16:42 | NUR ---
SHIFT SUMMARY- PT C/O OF PAIN, TREATED PER EMAR. NEPHRO TUBE, YELLOW/SEROUS FLUID. PLEURO TUBE DRAINING, GEOV[place]NI COLOR FLUID. PT INCONSOLABLE AT TIMES. ANXIETY NOTED, TREATED PER EMAR. FAMILY AT BEDSIDE. PT UP TO BEDSIDE COMMODE X2. LULÚ BM NOTED THIS SHIFT. WILL CONTINUE TO MONITOR, BED SIDE RAILS UP. BED/CHAIR ALARM ON, CALL LIGHT IN REACH.
--- NOTE | 2022-10-30 05:19 | NUR ---
SHIFT SUMMARY PT A&OX 2- PT SAT UP TO CHAIR AT BEGINNING OF SHIFT- PT REQUESTED SISTER STAY THE NIGHT SO SHE COULD SLEEP- PT CALLED A COUPLE TIMES T/O NIGHT- MOST OF NIGHT PT SLEPT WITHOUT PROBLEMS- EMPTIED LEFT SIDE NEPH TUBE= CLEAR YELLOW URINE, HARPERET DRAIN EMPTIED WITH SEROUSANGEOUS DRAINAGE- BED LOW POSITION, CALL LIGHT WITHIN REACH, BED ALARM IN PLACE, SISTER XIN IN CHAIR AT BEDSIDE
--- NOTE | 2022-10-30 08:00 | NUR ---
pt laying in bed with sister in room. she ate breakfast, seems to be in good spirits, cooperative with care, lungs are course/crackles, on r/a, one person assist, nephrostmy tube in place, midline incision, healing well, iv to rfa site is clear and patent, call light in reach.
[2022-10-30] MEDS ORDERED: VISBIOME 112.51 EACH PO (15:23)
--- NOTE | 2022-10-30 16:45 | NUR ---
Pt has been discharged to home, called Dr. Barnett to clarify if she's coming back to change her bag, she was ok with the one there, went over instructions with sister, she verbalized understanding, iv removed intact, left via wheelchair with sawmill hand in attendence.
== END 2022-10-30 16:37 | disposition home health service (06) | DRG 193 ==
LOC: ER 08:53 → MEDS 16:19 → ICUW 10-19 22:20 → MEDS 10-20 14:09
PROVIDERS: Internal Medicine; Student in an Organized Health Care Education/Training Program; Surgery; ADMIT Family Medicine
PROC: 0W9G30Z Drainage of Peritoneal Cavity with Drainage Device, Percutaneous Approach (ICD-10-PCS; principal; 2022-10-21)
PROC: 0T9130Z Drainage of Left Kidney with Drainage Device, Percutaneous Approach (ICD-10-PCS; 2022-10-29)
DX: J18.9 Pneumonia, unspecified organism (principal); J96.01 Acute respiratory failure with hypoxia; F05 Delirium due to known physiological condition; J21.0 Acute bronchiolitis due to respiratory syncytial virus; R45.851 Suicidal ideations; Z20.822 Contact with and (suspected) exposure to COVID-19; Z66 Do not resuscitate; K21.9 Gastro-esophageal reflux disease without esophagitis; E03.9 Hypothyroidism, unspecified; E66.9 Obesity, unspecified; G89.29 Other chronic pain; N36.8 Other specified disorders of urethra; Z96.1 Presence of intraocular lens; D75.838 Other thrombocytosis; E86.0 Dehydration; Z28.21 Immunization not carried out because of patient refusal; Z98.41 Cataract extraction status, right eye; Z98.42 Cataract extraction status, left eye; Z87.19 Personal history of other diseases of the digestive system; Z88.1 Allergy status to other antibiotic agents; Z88.2 Allergy status to sulfonamides; Z88.8 Allergy status to other drugs, medicaments and biological substances; Z79.2 Long term (current) use of antibiotics; Z79.899 Other long term (current) drug therapy
CPT/HCPCS: 0241U; 36415; 49405; 50432; 71046; 74178; 76937; 80048; 80053; 80069; 80076; 82570; 82728; 82947; 83540; 83550; 83605; 83735; 83880; 84100; 85025; 85610; 87040; 87070; 87075; 87106; 87205; 92526; 92610; 93005; 93010; 93970; 94640; 94664; 94760; 96365; 97110; 97116; 97162; 97165; 97530; 97535; 99152; 99153; 99285-25; A9270; C1713; C1729; C1760; C1769; C1894; J0456; J0692; J0696; J1630; J1650; J2060; J2250; J2270; J2543; J3010; J7040; J7042; J7050; Q9967

== ENCOUNTER 2023-01-06 06:27 | Day surgery (SDC) | payer OTHER ==
[~2023-01-06] VITALS: Ht 134.6 cm; Wt 50.0 kg
[~2023-01-06 06:27] MED LIST changes: +BENZ100A PO; +ELIQUIS5 M2 PO; +ESCI10 PO; +FAMO20 PO; +FERSU300 PO; +Flonase 0.05% N16 GM; +LISI20 PO; +LORA.5 PO; +Voltaren100 GM TD
--- NOTE | 2023-01-06 09:16 | NUR ---
PT ARRIVED BACK TO RECOVERY ROOM IN BED. LEFT FLANT NEPHROSTOMY TUBE STABLE WITH INTACT DRESSING AND RED-TINGED URINE TO GRAVITY BAG. PT'S SISTER IN ROOM. PT SITTING UP DRINKING WATER. CALL LIGHT IN REACH.
--- NOTE | 2023-01-06 10:10 | NUR ---
DISCHARGE INSTRUCTIONS REVIEWED ALL [facility] ANSWERED. DR VANCE IN ROOM TO SEE PT AND HER SISTER. 24 G IV DISCONTINUED FROM LEFT FOREARM WITH INTACT CANNULA. NO CHANGES TO L FLANK NEPHROSTOMY SITE. PT ESCORTED OUT VIA WHEELCHAIR ESCORT.
== END 2023-01-06 10:00 | disposition home or self-care (01) ==
LOC: MHTC 06:27
DX: S37.10XA Unspecified injury of ureter, initial encounter (principal); X58.XXXA Exposure to other specified factors, initial encounter; Z93.6 Other artificial openings of urinary tract status; I10 Essential (primary) hypertension; E66.9 Obesity, unspecified; E03.9 Hypothyroidism, unspecified; Z88.8 Allergy status to other drugs, medicaments and biological substances; Z88.2 Allergy status to sulfonamides; Z79.899 Other long term (current) drug therapy; Z79.01 Long term (current) use of anticoagulants
CPT/HCPCS: 50435; A9270; C1729; C1769; J7050; Q9967

== ENCOUNTER 2023-01-09 12:42 | Emergency (ER) | payer OTHER ==
[~2023-01-09] VITALS: Ht 134.6 cm; Wt 49.9 kg
[2023-01-09 13:59] LABS: Albumin, Blood 2.9 g/dL (3.4-5.0); Albumin/Globulin Ratio 0.6 (0.8-1.8); Bilirubin, Total 0.4 mg/dL (0.1-1.0); Bun/Creatinine Ratio 24.5 (12.0-20.0); Calcium, Blood 9.6 mg/dL (8.5-10.1); Creatinine, Blood 0.49 mg/dL (0.40-1.00); Globulin, Blood 5.2 g/dL (2.2-4.0); Potassium, Blood 4.3 mmol/L (3.5-5.5); Total Protein, Blood 8.1 g/dL (6.4-8.2)
== END 2023-01-09 14:58 | disposition left against medical advice (07) ==
LOC: ER 12:42
PROVIDERS: Student in an Organized Health Care Education/Training Program
DX: R10.9 Unspecified abdominal pain (principal); Z79.890 Hormone replacement therapy; Z79.899 Other long term (current) drug therapy; Z79.01 Long term (current) use of anticoagulants; Z53.21 Procedure and treatment not carried out due to patient leaving prior to being seen by health care provider
CPT/HCPCS: 36415; 80053; 99281

== ENCOUNTER 2023-02-14 20:26 | Emergency (ER) | payer OTHER ==
[~2023-02-14] VITALS: Ht 137.2 cm; Wt 49.9 kg
[~2023-02-14 20:26] MED LIST changes: +DOXY100 PO
[2023-02-14 20:39] VITALS: BP 129/87
== END 2023-02-14 22:35 | disposition home or self-care (01) ==
LOC: ER 20:26
DX: T83.022A Displacement of nephrostomy catheter, initial encounter (principal); Y84.6 Urinary catheterization as the cause of abnormal reaction of the patient, or of later complication, without mention of misadventure at the time of the procedure; E03.9 Hypothyroidism, unspecified; Z88.8 Allergy status to other drugs, medicaments and biological substances; Z88.2 Allergy status to sulfonamides; Z91.018 Allergy to other foods; Z88.1 Allergy status to other antibiotic agents; Z79.899 Other long term (current) drug therapy; Z79.01 Long term (current) use of anticoagulants; I10 Essential (primary) hypertension
CPT/HCPCS: 99282

== ENCOUNTER 2023-04-29 12:59 | Day surgery (SDC) | payer OTHER ==
[~2023-04-29] VITALS: Ht 134.6 cm; Wt 48.0 kg
[2023-04-29 14:38] VITALS: BP 144/101
[2023-04-29 16:36] VITALS: BP 142/111
[2023-04-29 16:45] VITALS: BP 114/63
--- NOTE | 2023-04-29 16:54 | NUR ---
PT AND CAREGIVER VERBALIZES UNDERSTANDING WRITTEN INSTRUCTIONS. DENIES QUESTIONS. ALF. DORINA.
--- NOTE | 2023-04-29 17:15 | NUR ---
PATIENT TOLERATING PO INTAKE WELL. PATIENT SITTING UPRIGHT IN BED, CONVERSING APPROPRIATELY. ALL PATIENT BELONGINGS AND DISCHARGE PAPERWORK LEFT WITH PATIENT. PIV REMOVED WITHOUT DIFFICULTY, CATHETER INTACT. VSS ON RA DRESSING SITE C/D/I.
--- NOTE | 2023-04-29 17:20 | NUR ---
PATIENT WHEELED TO HOSPITAL ENTRANCE. CAREGIVER ABLE TO PROVIDE TRANSPORTATION HOME
--- NOTE | 2023-04-29 17:23 | NUR ---
PATIENT ARRIVED TO RECOVERY ROOM CONVERSING APPROPRIATELY. VSS ON ROOM AIR. PERM CATH INSERTION SITE C/D/I. VSS ON RA
== END 2023-04-29 17:20 | disposition home or self-care (01) ==
LOC: MHTC 12:59
DX: N28.89 Other specified disorders of kidney and ureter (principal); S37.10XD Unspecified injury of ureter, subsequent encounter; Z93.6 Other artificial openings of urinary tract status; E03.9 Hypothyroidism, unspecified; I10 Essential (primary) hypertension; Z88.2 Allergy status to sulfonamides
CPT/HCPCS: 50435; C1729; C1769; J2250; J3010; J7030; J7050; Q9967

== ENCOUNTER 2023-09-15 08:14 | Day surgery (SDC) | payer OTHER ==
[~2023-09-15] VITALS: Ht 134.6 cm; Wt 52.0 kg
[~2023-09-15 08:14] MED LIST changes: +EUTHYROX88 MCG PO
[2023-09-15 08:44] VITALS: BP 132/78
[2023-09-15 11:03] VITALS: BP 128/95
--- NOTE | 2023-09-15 11:05 | NUR ---
PATEINT RETURNED FROM THE ELECTRON BEAM PHOTO MASK TECHNICIAN VIA BED AND PLACED ON THE MONITOR. PATIENT AWAKE AND NO C/O PAIN AT THE TIME. FAMILY AT THE BEDSIDE. SAT UP IN THE BED. TAKING SIPS OF WATER AND BITES OF PANCAKE (GIVEN BY FAMILY). VVS, CALL LIGHT IN REACH.
[2023-09-15 11:15] VITALS: BP 127/89
--- NOTE | 2023-09-15 11:54 | NUR ---
PATIENT PIV REMOVED FROM THE LEFT FOREARM. CATH TIP INTACT. PRESSURE DRESSING APPLIED. MONITOR REMOVED AND PATIENT ASSISTED UP AND OOB. PATIENT DRESSED SELF. REVIEWEDDISCHARGED INSTRUCTIONS WITH PATIENT AND FAMILY. PATIENT STOOD ADN USED WALKED TO THE WHEELCHAIR. SISTER TIRE STRIPPER AND COPIES GIVEN OS DISCHARGE INSTRUCTIONS. NEPH TUBE IS SECURED TO THE LEFT FLANK AREA AND NO FURTHER QUESTIONS NOTED FROM THE PATIENT OR FAMILY. DISCHARGED HOME.
== END 2023-09-15 12:00 | disposition home or self-care (01) ==
LOC: MHTC 08:14
DX: Z43.6 Encounter for attention to other artificial openings of urinary tract (principal); S37.10XD Unspecified injury of ureter, subsequent encounter; I10 Essential (primary) hypertension
CPT/HCPCS: 50435; 99152; 99153; C1729; C1769; J2250; J2405; J3010; J7030; J7050; Q9967

== ENCOUNTER 2023-11-26 07:12 | Day surgery (SDC) | payer OTHER ==
[~2023-11-26] VITALS: Ht 134.6 cm; Wt 54.0 kg
[2023-11-26 07:51] VITALS: BP 133/84
[2023-11-26 07:54] VITALS: BP 133/84
--- NOTE | 2023-11-26 10:00 | NUR ---
patient returned to [facility] recovery room. post procedure. no sedation given.
[2023-11-26 10:04] VITALS: BP 125/87
[2023-11-26 10:11] VITALS: BP 147/98
[2023-11-26 10:15] VITALS: BP 149/83
--- NOTE | 2023-11-26 10:40 | NUR ---
discharge instructions and precautions given to patient and Angela"day sitter". verbalized understanding. no further questions. IV site dce with catheter intact. dressing to site dryb and intact. red skin around site from in home dressing. patient in good spirits and denies pain. patient discharged via wheelchair to car Angela Skys[employer].
== END 2023-11-26 10:40 | disposition home or self-care (01) ==
LOC: MHTC 07:12
DX: Z46.6 Encounter for fitting and adjustment of urinary device (principal); S37.10XD Unspecified injury of ureter, subsequent encounter; X58.XXXD Exposure to other specified factors, subsequent encounter; I10 Essential (primary) hypertension; E03.9 Hypothyroidism, unspecified; Z88.2 Allergy status to sulfonamides; Z88.8 Allergy status to other drugs, medicaments and biological substances; Z79.890 Hormone replacement therapy; Z79.899 Other long term (current) drug therapy
CPT/HCPCS: C1729; C1769; J2250; J2405; J3010; J7040; J7050; Q9967

== ENCOUNTER 2024-04-05 08:19 | Day surgery (SDC) | payer OTHER ==
[~2024-04-05] VITALS: Ht 134.6 cm; Wt 53.2 kg
[2024-04-05] MEDS ORDERED: NS 500 ML IV ONE ×2 (08:29→09:56)
[2024-04-05 08:45] VITALS: BP 135/75
[2024-04-05 08:48] VITALS: BP 135/75
[2024-04-05] MEDS ORDERED: FentaNYL Citrate 50 MCG/ML 2 ML Injection ONE (09:56)
[2024-04-05] MEDS ORDERED: Midazolam HCl 1MG / ML 2ML Vial ONE (09:56)
[2024-04-05 10:33] VITALS: BP 130/84
--- NOTE | 2024-04-05 10:46 | NUR ---
pt returns from labor relations representative s/p nephtube replacement. no sedation was used. pt iv removed catheter intact. pt. able to get self dressed w/o difficulty. vss upon discharge. pt requesting to ambulate to exit with family day carer. pt. medication sheet signed and returned per caregiver request. nadn. neph tube bag draining clear pink fluid.
== END 2024-04-05 10:59 | disposition home or self-care (01) ==
LOC: MHTC 08:19
DX: Z43.6 Encounter for attention to other artificial openings of urinary tract (principal); S37.10XD Unspecified injury of ureter, subsequent encounter; I10 Essential (primary) hypertension; E03.9 Hypothyroidism, unspecified; Z88.2 Allergy status to sulfonamides; Z88.8 Allergy status to other drugs, medicaments and biological substances; X58.XXXD Exposure to other specified factors, subsequent encounter
CPT/HCPCS: 50435; C1729; C1769; J2250; J3010; J7040; Q9967

== ENCOUNTER 2024-04-26 08:03 | Day surgery (SDC) | payer OTHER ==
[~2024-04-26] VITALS: Ht 134.6 cm; Wt 53.0 kg
[~2024-04-26 08:03] MED LIST changes: +NS 250 ML IV ONE
[2024-04-26 08:27] VITALS: BP 156/83
--- NOTE | 2024-04-26 09:17 | NUR ---
PATIENT ARRIVED TO RECOVERY ROOM SITTING UPRIGHT IN BED. RIGHT NEPH TUBE C/D/I AND DRAINING PROPERLY. PATIENT DENYING ANY PAIN. PATIENT CONVERSING APPROPRIATELY. PATIENT ABLE TO TRANSFER TO CHAIR WITHOUT DIFFICULTY. PATIENT TOLERATING PO INTAKE WELL.
--- NOTE | 2024-04-26 09:45 | NUR ---
PT AND POULTRY PROCESSOR GIVEN DC INSTRUCTIONS AND FOLLOW UP INFORMATION, VERBALIZED UNDERSTANDING. PT AMBULATED OUT OF THE DEPT WITHOUT DIFFICULTY.
== END 2024-04-26 09:38 | disposition home or self-care (01) ==
LOC: ORSCMMR 08:03 → MHTC 08:03
DX: Z43.6 Encounter for attention to other artificial openings of urinary tract (principal); S37.10XD Unspecified injury of ureter, subsequent encounter; E03.9 Hypothyroidism, unspecified; I10 Essential (primary) hypertension; Z79.899 Other long term (current) drug therapy; Z88.2 Allergy status to sulfonamides; Z88.8 Allergy status to other drugs, medicaments and biological substances
CPT/HCPCS: 50435; C1729; C1769; J7050; Q9967

== ENCOUNTER 2024-08-11 11:33 | Day surgery (SDC) | payer OTHER ==
[~2024-08-11] VITALS: Ht 134.6 cm; Wt 56.2 kg
[~2024-08-11 11:33] MED LIST changes: +EPIPEN0.3 MG/0.3 IM; -NS 250 ML IV ONE
[2024-08-11 12:03] VITALS: BP 124/86
[2024-08-11] MEDS ORDERED: NS 250 ML IV ONE (12:10)
[2024-08-11] MEDS ORDERED: METAMUCIL PO (12:20)
[2024-08-11 12:25] VITALS: BP 124/86
--- NOTE | 2024-08-11 13:00 | NUR ---
PATIENT ARRIVED BACK TO RECOVERY ROOM SITTING UPRIGHT IN BED. L NEPH TUBE IN PLACE DRAINING APPROPRIATELY. VSS ON RA. PATIENT TOLERATING PO INTAKE WELL
[2024-08-11 13:03] VITALS: BP 157/89
[2024-08-11 13:15] VITALS: BP 165/77
--- NOTE | 2024-08-11 13:29 | NUR ---
PATIENT DISCHARGED HOME AT THIS TIME. CAREGIVER PRESENT. PATIENT ABLE TO GET DRESSED WITHOUT DIFFICULTY. VSS ON RA. PATIENT AMBULATING WITHOUT DIFFICULTY. L NEPH TUBE IN PALCE DRAINING APPROPRIATELY
== END 2024-08-11 14:25 | disposition home or self-care (01) ==
LOC: MHTC 11:33
DX: Z43.6 Encounter for attention to other artificial openings of urinary tract (principal); I10 Essential (primary) hypertension; E03.9 Hypothyroidism, unspecified; Z88.2 Allergy status to sulfonamides; Z88.8 Allergy status to other drugs, medicaments and biological substances; Z79.899 Other long term (current) drug therapy
CPT/HCPCS: 50435; C1729; C1769; J7050

== ENCOUNTER 2024-12-30 08:06 | Day surgery (SDC) | payer OTHER ==
[~2024-12-30] VITALS: Ht 134.6 cm; Wt 57.2 kg
[~2024-12-30 08:06] MED LIST changes: +LEVSOD112 PO; +METAMUCIL PO
[2024-12-30] MEDS ORDERED: ARTHRITIS PAIN150 GM TOP (08:46)
[2024-12-30 08:58] VITALS: BP 144/79
[2024-12-30 09:15] VITALS: BP 145/81
[2024-12-30 09:30] VITALS: BP 144/83
[2024-12-30 09:45] VITALS: BP 115/103
[2024-12-30] MEDS ORDERED: NS 0 ML IV ONE (09:47)
[2024-12-30] MEDS ORDERED: Midazolam HCl 1MG / ML 2ML Vial ONE (09:57)
[2024-12-30] MEDS ORDERED: FentaNYL Citrate 50 MCG/ML 2 ML Injection ONE (09:57)
[2024-12-30] MEDS ORDERED: NS 250 ML IV ONE ×2 (09:57→10:53)
--- NOTE | 2024-12-30 10:30 | NUR ---
PT BACK TO RECOVERY, PT. CAREGIVER AT BEDSIDE, UPDATE BY RN. DISCHARGE INSTRUCTIONS AND WOUND CARE DISCUSSED WITH CAREGIVER. PT. CAREGIVER TO ASSIST PT WITH GETTING DRESSED.
[2024-12-30 10:40] VITALS: BP 147/84
--- NOTE | 2024-12-30 10:56 | NUR ---
PT. CAREGIVER ASSISTING PT TO GET DRESSED, WHEN ASSISTING PT TO BEDSIDE PT NEPH TUBE GOT CAUGHT ON SIDERAIL AND WAS PULLED OUT. DR. VANCE NOTIFIED.
--- NOTE | 2024-12-30 11:01 | NUR ---
PT TAKEN BACK TO HEATING AND VENTILATING DRAFTER AT THIS TIME TO REPLACE NEPH TUBE.
--- NOTE | 2024-12-30 11:22 | NUR ---
PT RETURNS TO AUDIT PRACTICE INTERN AFTER REPLACEMENT OF NEPH TUBE. PT TOLERATED WELL. PT. ASSISTED BY CAREGIVERS TO GET DRESSED. DRESSINGS/ CARE AFTER DISCUSSED WITH CARE GIVERS DUE TO PT HAVING SKIN IRRITATION. PT. ALERT AND ORIENTED UPON DEPARTURE. NO SEDATION GIVEN DURING PROCEDURE.
== END 2024-12-30 13:09 | disposition home or self-care (01) ==
LOC: MHTC 08:06
DX: T83.022A Displacement of nephrostomy catheter, initial encounter (principal); Y73.8 Miscellaneous gastroenterology and urology devices associated with adverse incidents, not elsewhere classified; S37.10XA Unspecified injury of ureter, initial encounter; I10 Essential (primary) hypertension; E03.9 Hypothyroidism, unspecified; Z88.8 Allergy status to other drugs, medicaments and biological substances; Z79.890 Hormone replacement therapy; X58.XXXA Exposure to other specified factors, initial encounter
CPT/HCPCS: 50432; 50435; C1729; C1769; C1887; J2250; J3010; J7050; Q9967

== ENCOUNTER 2025-10-12 10:42 | Day surgery (SDC) | payer OTHER ==
[~2025-10-12] VITALS: Ht 162.6 cm; Wt 63.0 kg
[~2025-10-12 10:42] MED LIST changes: +ARTHRITIS PAIN150 GM TOP
[2025-10-12 11:15] VITALS: BP 143/84
[2025-10-12] MEDS ORDERED: NS 500 ML IV ONE (12:05)
[2025-10-12 12:50] VITALS: BP 151/75
[2025-10-12 13:00] VITALS: BP 171/138
== END 2025-10-12 13:20 | disposition home or self-care (01) ==
LOC: MHTC 10:42
DX: Z46.6 Encounter for fitting and adjustment of urinary device (principal); N13.5 Crossing vessel and stricture of ureter without hydronephrosis; I10 Essential (primary) hypertension; E03.9 Hypothyroidism, unspecified; F81.9 Developmental disorder of scholastic skills, unspecified; E66.9 Obesity, unspecified; Z68.34 Body mass index [BMI] 34.0-34.9, adult; Z79.890 Hormone replacement therapy; Z79.899 Other long term (current) drug therapy; Z88.2 Allergy status to sulfonamides; Z88.8 Allergy status to other drugs, medicaments and biological substances; Z90.49 Acquired absence of other specified parts of digestive tract; Z93.6 Other artificial openings of urinary tract status
CPT/HCPCS: 50435; C1729; C1769; J7040; Q9967